=== PATIENT | male | born 1930 | race Caucasian/White ===

== ENCOUNTER 2018-08-23 15:21 | Emergency (ER) | payer MEDICARE, BC ==
--- NOTE | 2018-08-23 17:07 | RAD ---
THREE VIEW LEFT SHOULDER: 08/23/18 CLINICAL HISTORY: Syncopal episode with injury related to fall, pain. 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 There is a high riding left humeral head. No fracture is seen. IMPRESSION: Chronic findings of the left shoulder, without acute fracture evident. POS: C
--- NOTE | 2018-08-23 17:11 | RAD ---
PORTABLE SEMIUPRIGHT FRONTAL CHEST RADIOGRAPH 08/23/18 COMPARISON: None. HISTORY: Syncope, short of breath. FINDINGS: There is a dual lead transvenous pacing device inserted via left subclavian approach. No pneumothorax is seen. There is increased linear interstitial density in the perihilar regions and both lung bases , primarily on the right. In addition, hazy interstitial and alveolar opacities noted in the right sabrina ng base and the right upper lobe region. There also appears to be a degree of volume loss involving t he right hemithorax. IMPRESSION: Nonspecific interstitial and alveolar opacity, primarily within the right lung. Findings suggest infe ctious pneumonitis/aspiration. Asymmetric edema is a less likely possibility. Recommend followup imag ing following treatment to document resolution. POS: RAFAEL
--- NOTE | 2018-08-23 17:17 | CT ---
CT BRAIN WITHOUT CONTRAST: 08/23/18 HISTORY: Injury, syncopal episode with fall, trauma to the head. FINDINGS: There are changes of cortical atrophy and chronic small vessel ischemic disease. The ventricular size is appropriate and the basilar cisterns patent. No evidence of acute infarct, hemorrhage, midline shift, or abnormal extra-axial fluid collections ar e seen. The bony calvarium is intact. The visualized paranasal sinuses and mastoid air cells are well aerated. A prosthesis is seen in the left orbit. IMPRESSION: No CT evidence of acute intracranial process. POS: OFF
--- NOTE | 2018-08-23 17:24 | CT ---
CERVICAL SPINE CT WITHOUT CONTRAST: 08/23/18 COMPARISON: None. HISTORY: Syncope, fall, head injury. TECHNIQUE: Axial CT imaging at 2.5 mm intervals from the skull base through the lung apices without contrast. co keeley and sagittal reformatted imaging obtained. FINDINGS: The C1 ring is intact. The occipital condyles, the dens, and the C1-2 articulation demonstrate no acute findings. Craniocerv ical junction and cervicothoracic junction appear intact. There is minimal anterolisthesis of C7 on T1 measuring approximately 3 mm. There is prominent degenerative change at the atlantoaxial interspace. No prevertebral soft tissue swelling is noted. There is disc space narrowing with degenerative end plate change present at C3-4, C4-5, C5-6, and C6- 7 with associated anterior osteophyte formation. There is no displaced fracture or evidence of dislocation seen. Partially imaged lung apices demonstrate an irregular nodular density in the left lung apex measuring 1.2 cm. There is partially imaged nonspecific coarse air space opacity in the imaged right lung apex . There is a tubular abnormal hypodensity at the level of the thoracic inlet extending to the right of midline within the upper chest which suggests a mass and/or distended esophagus. This abnormality tejinder sures 3.9 cm in greatest dimension and demonstrates a rounded configuration. IMPRESSION: 1. Prominent multilevel degenerative change. No acute fracture or evidence of dislocation. 2. Tubular hypodense structure at the level of the thoracic inlet anteriorly and to the right of midline. Findings suggest distended esophagus containing debris and/or mass density. Recommend CT ex amination of the chest with IV contrast for further assessment. Code T POS: RAFAEL
[2018-08-23 17:34] LABS: #Eosinphils 0.1 thou/uL (0.0-0.7); #Lymphocytes 0.6 thou/uL (1.20-3.40); #Monocytes 0.6 thou/uL (0.11-0.59); #Neutrophils 6.4 thou/uL (1.40-6.50); %Basophils 0.2 % (0.0-1.0); %Eosinophils 1.9 % (0.0-10.0); %Lymphocytes 7.2 % (21.0-51.0); %Monocytes 8.3 % (0.0-10.0); %Neutrophils 82.4 % (42.0-75.0); Hemoglobin 8.9 g/dL (14.0-18.0); Mean Corpuscular HGB CONC 30.8 g/dL (32.0-36.0); Mean Corpuscular Volume 84.3 fL (78.0-98.0); Mean Platelet Volume 7.4 fL (7.4-10.4); Platelet Count 261 thou/uL (130-400); Red Blood Cell (RBC) Count 3.41 mill/uL (4.70-6.10); White Blood Cell (WBC) Count 7.8 thou/uL (4.8-10.8)
[2018-08-23 17:55] LABS: ALT (SGPT) 27 U/L (8-55); AST (SGOT) 25 U/L (5-34); Albumin 3.1 g/dL (3.4-4.8); Alkaline Phosphatase 110 U/L (40-150); Anion Gap 14 mmol/L (10-20); BUN (Urea Nitrogen) 22 mg/dL (8.4-25.7); Bilirubin, Total 0.4 mg/dL (0.2-1.2); CK (CPK) 32 U/L (30-200); Calc. Creatinine Clearance 0 mL/min (70-130); Carbon Dioxide 22 mmol/L (23-31); Chloride 108 mmol/L (98-107); Estimated GFR-MDRD 57; Globulin 2.9 g/dL (2.4-3.5); Glucose 108 mg/dL (83-110); Sodium 139 mmol/L (136-145)
[2018-08-23 18:43] LABS: Bilirubin Negative (Negative); Blood, Urine Negative (Negative); Clarity CLOUDY (Clear); Glucose, Urine (Dipstick) Negative (Negative); Leukocyte Large (Negative); Nitrite Positive (Negative); Protein, Urine (Dipstick) Negative (Neg-Trace); Specific Gravity, Urine 1.019 (1.002-1.036); pH, Urine 5.5 (5.0-9.0)
[2018-08-23 18:46] LABS: Bacteria/HPF 3+ HPF (None Seen); Pathc Cast-AUWi Flag 0.58 (0-2.49); Squamous Epithelial None Seen HPF (0-3)
[2018-08-23 19:04] LABS: Hyaline Casts/LPF 0-3 HYALINE CAST LPF (0-3 Hyaline)
[2018-08-23] MEDS ORDERED: cefTRIAXone\\ROCEPHIN 1 GM VIAL ONE (20:04)
--- NOTE | 2018-08-23 21:30 | CT ---
EXAM: CHEST CT SCAN WITH IV CONTRAST: 08/23/18 HISTORY: 87-year-old male with history of syncope, abnormal findings on chest x-ray. Extensive interstitial, linear, and reticulonodular parenchymal changes throughout both lungs much mo re prominent on the right side with some associated bronchiectasis, certainly evidence for interstiti al chronic lung disease. The possibility of some acute interstitial pneumonitis is certainly a consid eration as well. There are some scattered poorly circumscribed nodules noted bilaterally. One of thes e approximates 0.8 cm and is pleural based in the left lower lobe. There is some enlargement of multi ple mediastinal lymph nodes including the prevascular region, paratracheal region, aortopulmonary win rod region and subcarinal region as well as some fullness of several nodes in the right hilar and inf rahilar region. There is evidence for small hiatal hernia. IMPRESSION: Extensive bilateral interstitial, linear, reticulonodular parenchymal changes much more marked throug hout the right lung with some associated bronchiectasis having the appearance of chronic interstitial lung disease including interstitial pulmonary fibrosis. The possibility of some associated acute int erstitial pneumonitis certainly cannot be excluded from this study. Minimal mediastinal and right hil ar adenopathy. Multiple small scattered poorly defined nodules including a 0.8 cm diameter pleural ba sed nodule in the left lower lobe. Consider followup chest CT scan in three months for further evalua tion. Small hiatal hernia. visualized upper abdomen is unremarkable. POS: RAFAEL
== END 2018-08-23 22:06 | disposition home or self-care (01) ==
LOC: ERS 15:21
DX: M54.2 Cervicalgia (principal); M25.512 Pain in left shoulder; N39.0 Urinary tract infection, site not specified; Z79.899 Other long term (current) drug therapy; Z79.01 Long term (current) use of anticoagulants
CPT/HCPCS: 36415; 70450; 71045; 71260; 72125; 80053; 81003; 81015; 82550; 83880; 84484; 85025; 87077; 87086; 87186; 93005; 96365; J0696

== ENCOUNTER 2018-09-02 12:01 | Inpatient (IN) | payer MEDICARE, BC ==
[2018-09-02 12:54] LABS: #Eosinphils 0.3 thou/uL (0.0-0.7); #Lymphocytes 0.8 thou/uL (1.20-3.40); #Monocytes 0.6 thou/uL (0.11-0.59); #Neutrophils 7.4 thou/uL (1.40-6.50); %Basophils 0.2 % (0.0-1.0); %Eosinophils 2.8 % (0.0-10.0); %Lymphocytes 8.7 % (21.0-51.0); %Monocytes 6.6 % (0.0-10.0); %Neutrophils 81.7 % (42.0-75.0); Mean Corpuscular HGB CONC 30.7 g/dL (32.0-36.0); Mean Corpuscular Hemoglobin 25.5 pg (27.0-31.0); Mean Corpuscular Volume 83.2 fL (78.0-98.0); Mean Platelet Volume 7.4 fL (7.4-10.4); Platelet Count 259 thou/uL (130-400); RBC Distribution Width 14.1 % (11.5-14.5); Red Blood Cell (RBC) Count 3.13 mill/uL (4.70-6.10)
[2018-09-02 13:17] LABS: ALT (SGPT) 35 U/L (8-55); AST (SGOT) 34 U/L (5-34); Alkaline Phosphatase 119 U/L (40-150); Anion Gap 19 mmol/L (10-20); BUN (Urea Nitrogen) 36 mg/dL (8.4-25.7); Bilirubin, Total 0.3 mg/dL (0.2-1.2); CK (CPK) 32 U/L (30-200); Calc. Creatinine Clearance 0 mL/min (70-130); Calcium 8.5 mg/dL (7.8-10.44); Carbon Dioxide 16 mmol/L (23-31); Chloride 105 mmol/L (98-107); Estimated GFR-MDRD 43; Globulin 3.5 g/dL (2.4-3.5); Glucose 128 mg/dL (83-110); Potassium 4.9 mmol/L (3.5-5.1); Protein, Total 6.5 g/dL (5.8-8.1); Sodium 135 mmol/L (136-145)
--- NOTE | 2018-09-02 14:12 | RAD ---
PORTABLE UPRIGHT FRONTAL CHEST RADIOGRAPH: DATE: 09/02/2018. COMPARISON: 08/23/2018. HISTORY: Generalized weakness. FINDINGS: Thee is a dual-lead transvenous pacing device inserted via a left subclavian approach. As seen on pr ior chest radiograph as well as recent chest CT, there is coarse nonspecific increased interstitial a nd alveolar opacity throughout the right hemithorax. There is mild streaky opacity in the left lung apex and left lung base. Heart and mediastinal contours are stable. IMPRESSION: Stable appearance of the chest demonstrating nonspecific interstitial and alveolar opacity throughout the right hemithorax, better assessed on a recent CT examination 10 days prior. POS: RAFAEL
[2018-09-02] MEDS ORDERED: KETAMINE 100 MG/ML (5ML VIAL) ONE (17:52)
[2018-09-02 18:29] LABS: Bilirubin Negative (Negative); Blood, Urine Negative (Negative); Clarity CLEAR (Clear); Glucose, Urine (Dipstick) Negative (Negative); Leukocyte Moderate (Negative); Nitrite Negative (Negative); Protein, Urine (Dipstick) Negative (Neg-Trace); Specific Gravity, Urine 1.026 (1.002-1.036); pH, Urine 5.5 (5.0-9.0)
[2018-09-02 18:31] LABS: Bacteria/HPF None Seen HPF (None Seen); RBC/HPF 0-3 HPF (0-3); Squamous Epithelial 0-3 HPF (0-3)
[2018-09-02] MEDS ORDERED: Cefepime 2 GM in Sodium Chloride 0.9% 100 ML IVPB SCH (18:45)
[2018-09-02 18:47] LABS: Crystals/HPF 2+ URIC ACID HPF (Negative); Hyaline Casts/LPF 0-3 HYALINE CAST LPF (0-3 Hyaline)
[2018-09-02] MEDS ORDERED: Acyclovir 800 mg Tablet PO SCH (22:45)
[2018-09-03] MEDS ORDERED: Acetaminophen 325 MG TAB PO PRN (00:33)
[2018-09-03] MEDS ORDERED: Bisacodyl 10 MG SUPP PR PRN (00:33)
[2018-09-03] MEDS ORDERED: Senokot S 8.6-50 MG TAB PO PRN (00:33)
[2018-09-03] MEDS ORDERED: Bisacodyl 5 MG TAB PO PRN (00:33)
[2018-09-03] MEDS ORDERED: Guaifenesin DM 100-10/5 ML UDCUP PO PRN (00:33)
[2018-09-03] MEDS ORDERED: Zolpidem Tartrate 5 MG TAB PO PRN (00:33)
[2018-09-03] MEDS ORDERED: Calcium Carbonate 500 MG ChewTAB PO PRN (00:33)
[2018-09-03 03:43] LABS: #Basophils 0.1 thou/uL (0.0-0.2); #Eosinphils 0.3 thou/uL (0.0-0.7); #Lymphocytes 0.9 thou/uL (1.20-3.40); #Monocytes 0.8 thou/uL (0.11-0.59); #Neutrophils 5.3 thou/uL (1.40-6.50); %Lymphocytes 12.5 % (21.0-51.0); %Monocytes 10.5 % (0.0-10.0); Hemoglobin 7.8 g/dL (14.0-18.0); Mean Corpuscular HGB CONC 33.6 g/dL (32.0-36.0); Mean Corpuscular Hemoglobin 27.5 pg (27.0-31.0); Mean Corpuscular Volume 81.7 fL (78.0-98.0); Platelet Count 225 thou/uL (130-400); RBC Distribution Width 13.9 % (11.5-14.5); Red Blood Cell (RBC) Count 2.84 mill/uL (4.70-6.10); White Blood Cell (WBC) Count 7.4 thou/uL (4.8-10.8)
[2018-09-03 04:04] LABS: Albumin 2.7 g/dL (3.4-4.8); Anion Gap 11 mmol/L (10-20); BUN (Urea Nitrogen) 33 mg/dL (8.4-25.7); BUN/Creatinine Ratio 24.81; Calc. Creatinine Clearance 0 mL/min (70-130); Calcium 8.3 mg/dL (7.8-10.44); Carbon Dioxide 23 mmol/L (23-31); Chloride 104 mmol/L (98-107); Estimated GFR-MDRD 51; Glucose 110 mg/dL (83-110); Phosphorus 3.4 mg/dL (2.3-4.7); Potassium 5.4 mmol/L (3.5-5.1); Sodium 133 mmol/L (136-145)
[2018-09-03] MEDS ORDERED: Acetaminophen 325 MG TAB ONE (07:14)
--- NOTE | 2018-09-03 09:06 | ULT ---
RENAL ULTRASOUND: DATE: 09/03/2018. COMPARISON: None. HISTORY: Acute kidney injury. TECHNIQUE: Multiplanar, azevedo scale sonographic imaging of the kidneys and urinary bladder obtained. FINDINGS: The right kidney measures 9.3 x 4.2 x 4.6 cm. The left kidney measures 9.4 x 5.5 x 5.0 cm. There is a central cyst within the left kidney measuring up to 3 cm. Urinary bladder appears grossly unremar kable. No hydronephrosis is seen on either side. There is a questionable calcification in the mid p ole of the left kidney which is immediately adjacent to and/or associated with the above-described le ft renal cyst. This calcification measures in the 3 mm range. IMPRESSION: Left renal cyst and adjacent 3 mm calcification. No hydronephrosis. POS: RAFAEL
[2018-09-03] MEDS: Acyclovir 800 mg Tablet PO SCH ×2 (09:10→11:43)
[2018-09-03] MEDS: Aztreonam 1 GM in Sodium Chloride 0.9% 100 ML IVPB SCH (09:10)
[2018-09-03] MEDS: Famotidine/PF 20 mg/2ml Vial SLOW IVP SCH (09:12)
[2018-09-03] MEDS ORDERED: Enoxaparin Sodium 80 MG/0.8 ML SYRINGE ONE (09:14)
[2018-09-03] MEDS ORDERED: Famotidine/PF 20 mg/2ml Vial ONE (09:14)
[2018-09-03] MEDS: Enoxaparin Sodium 40 MG/0.4 ML SYRINGE SC SCH (09:15)
[2018-09-03] MEDS: Famotidine 20 MG TAB PO SCH (09:24)
--- NOTE | 2018-09-03 13:24 | DIS ---
DATE OF ADMISSION: 09/02/2018 DATE OF DISCHARGE: 09/03/2018 DISCHARGE DIAGNOSES: 1. Acute on chronic hypoxic respiratory failure. 2. Community-acquired bacterial pneumonia, likely gram-positive cocci. 3. Shingles. 4. Urinary tract infection with Escherichia coli. 5. Generalized weakness with falls. 6. Chronic anticoagulation with Xarelto. 7. Chronic interstitial lung disease. CONSULTATIONS: None. PERTINENT LABORATORY AND X-RAY FINDINGS: Potassium ranged between 4.9 to 5.4, creatinine ranged between 1.33 to 1.55, estimated GFR ranged between 43 to 51, and phosphorus 3.4. BNP 119. Albumin ranged between 2.7 to 3.0. CBC showed a white blood cell count ranging between 7.4 to 9.0, hemoglobin ranged between 7.8 to 8.0. Urinalysis showed moderate leukocyte esterase with 11 to 20 wbc's per high-power field. Urine culture dated 08/23/2018, showed 75,000 to 100,000 colonies of E coli species, pansensitive. Blood cultures x2 dated 09/02/2018, showed no growth to date. Influenza A and B antigen dated 09/02/2018, negative. Portable chest x-ray dated 09/02/2018, showed interstitial and alveolar opacities of the right hemithorax, similar in appearance to previous chest imaging on 08/23/2018. Renal ultrasound dated 09/03/2018, showed left renal cyst. No hydronephrosis noted. HOSPITAL COURSE: The patient was admitted after initially presenting with generalized weakness and falls. The patient underwent extensive evaluation and placed on IV cefepime and vancomycin after concern for a persistent urinary tract infection. The patient recently evaluated in the emergency room on 08/24/2018, diagnosed with E coli urinary tract infection. The patient was also noted with increased infiltrates of the right hemithorax concerning for persistent infectious process and placed on IV cefepime. The patient was transitioned to IV Azactam during the hospital course. The patient remained on oxygen supplementation at 3 L/minute by nasal cannula, which is the patient's baseline oxygen requirement at home. The patient received general pulmonary supportive management and remained clinically stable. The patient was also noted with right T4 dermatomal shingles and placed on acyclovir 800 mg 5 times daily. Current recommendations are to complete a 7-day course of acyclovir. The patient was also evaluated due to repetitive falls and generalized weakness for inpatient rehabilitation. The patient was deemed appropriate candidate and approved for transfer on 09/03/2018. I have examined the patient at the time of discharge and discussed followup instructions with the patient and his daughter. They both verbalized understanding and agreement and ready for discharge to inpatient rehabilitation on 09/03/2018. DISCHARGE MEDICATIONS: 1. Acyclovir 800 mg p.o. 5 times daily until 09/10/2018. 2. Levaquin 500 mg p.o. daily until 09/08/2018. 3. Losartan 25 mg p.o. daily. 4. Amiodarone 200 mg 1 tab p.o. daily. 5. Donepezil 23 mg half tab p.o. daily. 6. Metoprolol succinate 25 mg p.o. daily. 7. Xarelto 15 mg 1 tab p.o. daily. 8. Ipratropium bromide 21 mcg in one spray in each naris t.i.d. 9. Lumigan drops one drop at bedtime. 10. Iron 325 mg p.o. daily. 11. Protonix 40 mg one tab p.o. daily. 12. Istalol 0.5% ophthalmic drops one drop to the right eye daily. FOLLOWUP: The patient to follow up with [facility] on transfer. The patient may also follow up with his primary java android developer in the [place] area after discharge. CONDITION ON DISCHARGE: Fair. ACTIVITY: Ad maurilio, rolling walker with standby/contact guard assistance. General fall risk precautions. DIET: Regular. CODE STATUS: Full. DISPOSITION: Discharge to [facility] on 09/03/2018. TIME SPENT: Total time preparing and coordinating discharge is 35 minutes. Job ID: [id number]
--- NOTE | 2018-09-04 01:37 | HP ---
CHIEF COMPLAINT: Generalized weakness. HISTORY OF PRESENT ILLNESS: This is an 87-year-old male with past medical history of bladder cancer in 2005, treated with chemotherapy, osteoarthritis, sleep apnea, coronary artery disease status post pacemaker, GERD, presenting with generalized weakness. Per EMS, the patient called for help and the patient was having generalized weakness, especially when the patient was getting out of bed. Upon talking to the patient, the patient states that he has been having burning with urination and he has been going to the bathroom a lot. The patient states that he has to urinate every 2 hours. The patient is also complaining of productive cough and shortness of breath. Per records, when EMS attended to see the patient, the patient's oxygenation was 80% and patient was hypoxic. The patient was given oxygen and improved. REVIEW OF SYSTEMS: Positive for generalized weakness, cough, shortness of breath, otherwise all systems reviewed and are negative. PAST MEDICAL HISTORY: Coronary artery disease status post pacemaker, bladder cancer diagnosed in 2005, treated with chemotherapy, skin cancer, sleep apnea on CPAP at night. FAMILY HISTORY: Reviewed and noncontributory to this visit. PAST SURGICAL HISTORY: The patient has right knee replacement, right shoulder surgery, cholecystectomy, hernia repair, prostatectomy, and history of vasectomy. PSYCHIATRIC HISTORY: No psych history. SOCIAL HISTORY: The patient denies alcohol use. Denies illicit drugs and denies any smoking history. ALLERGIES: THE PATIENT IS ALLERGIC TO ASPIRIN AND PENICILLIN. CURRENT MEDICATIONS: The patient is on, 1. Losartan 25 mg. 2. Amiodarone 200 mg. 3. Donepezil 0.5 tabs oral daily. 4. Metoprolol succinate 25 mg. 5. Xarelto 15 mg. 6. Ipratropium. 7. Lumigan. 8. Iron. 9. Pantoprazole. 10. Bactrim. 11. Istalol. PHYSICAL EXAMINATION: VITAL SIGNS: Blood pressure is 121/51, pulse of 95, respiratory rate of 12, oxygen saturation of 94 on 3 L. GENERAL: The patient is lying in bed, does not appear to be in any acute distress. HEENT: Normocephalic and atraumatic. 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 For the right eye, pupils are reactive to light. Mucous membranes are moist. NECK: Trachea is midline. Full range of motion. No JVD. No tenderness. RESPIRATORY: Clear to auscultation bilaterally. No wheezing, no rales, no rhonchi appreciated. CARDIAC: Positive S1 and S2. Regular rate and rhythm. No murmurs, no gallops, no rubs appreciated. ABDOMEN: Soft, nontender, and nondistended. Positive bowel sounds in all quadrants. EXTREMITIES: The patient has 5/5 upper extremity strength and good pulses bilaterally. Lower extremity, 5/5 lower extremity strength and good pulses bilaterally. No edema noted. NEUROLOGIC: Cranial nerves 2 through 12 grossly intact. No neurologic deficits noted. SKIN: Warm and dry. The patient does have shingles on the right arm and back. The patient has shingles to the right side scattered among the T4 dermatome. PSYCH: Normal affect. DIAGNOSTIC DATA: EKG; a 12-lead EKG shows paced rhythm, rate of 77. Chest x-ray shows dual lead transvenous pacing device inserted via left subclavian approach. LABORATORY DATA: WBC is 9.0, hemoglobin is 8.0, hematocrit is 26.0, platelet count is 259. Sodium is 135, potassium is 4.9, chloride is 105, carbon dioxide is 16, BUN is 36, creatinine is 1.55, glucose is 128, BNP is 119.3. Urinalysis shows moderate leukocyte esterases. ASSESSMENT AND PLAN: This is an 87-year-old male being admitted for, 1. Urinary tract infection. At this point, we will start the patient on antibiotics. We will continue the patient on antibiotics. We will follow up morning labs. We will give the patient p.r.n. medication for pain and fever. We will follow up on cultures. 2. Acute kidney injury likely due to dehydration. At this point, we will order renal function panel. We will follow up on the panel. We will continue the patient on gentle hydration. We will monitor the patient closely. 3. Normocytic anemia, likely due to anemia of chronic inflammation. At this point, we will monitor the patient conservatively. We will continue current treatment. 4. Shortness of breath. The patient wears home O2. We will continue the patient on oxygenation. 5. Herpes zoster at the T4 dermatome and also at the right arm. We will continue the patient on acyclovir. 6. Deep venous thrombosis and gastrointestinal prophylaxis. Job ID: [id number]
[2018-09-05 09:40] VITALS: TEMP 98.4
[2018-09-05] MEDS: Acyclovir 800 mg Tablet PO SCH ×4 (11:42→15:09)
[2018-09-05] MEDS: Aztreonam 1 GM in Sodium Chloride 0.9% 100 ML IVPB SCH ×3 (11:43→11:57)
[2018-09-05] MEDS: Enoxaparin Sodium 40 MG/0.4 ML SYRINGE SC SCH ×2 (11:44→11:47)
[2018-09-05] MEDS: Famotidine 20 MG TAB PO SCH ×2 (11:44→11:47)
[2018-09-05] MEDS: Famotidine/PF 20 mg/2ml Vial SLOW IVP SCH ×2 (11:45→11:48)
[2018-09-05] MEDS ORDERED: Enoxaparin Sodium 40 MG/0.4 ML SYRINGE ONE (11:47)
[2018-09-05] MEDS ORDERED: Famotidine 20 MG TAB ONE (11:47)
[2018-09-05 16:08] VITALS: BP 97/46
--- NOTE | 2018-09-09 13:44 | EKG ---
Test Reason : WEAKNESS Blood Pressure : / mmHG Vent. Rate : 077 BPM Atrial Rate : 077 BPM P-R Int : 234 ms QRS Dur : 146 ms QT Int : 436 ms P-R-T Axes : 052 -35 114 degrees QTc Int : 493 ms Electronic ventricular pacemaker , malfunction Non-specific intra-ventricular conduction delay Confirmed by LAUREN GIBBS MD ([id number]), publishing editor NORBERTO REYES ([id number] on 09/09/2018 1:44:17 PM Referred By: Confirmed By:LAUREN GIBBS MD
== END 2018-09-03 12:55 | DRG 689 ==
LOC: ERS 12:01 → ERHOLD 17:33
PROVIDERS: ADMIT Family Medicine; ATTEND Family Medicine
DX: N39.0 Urinary tract infection, site not specified (principal); J96.21 Acute and chronic respiratory failure with hypoxia; J18.9 Pneumonia, unspecified organism; N17.9 Acute kidney failure, unspecified; B02.9 Zoster without complications; B96.20 Unspecified Escherichia coli [E. coli] as the cause of diseases classified elsewhere; J98.4 Other disorders of lung; G47.30 Sleep apnea, unspecified; I25.10 Atherosclerotic heart disease of native coronary artery without angina pectoris; K21.9 Gastro-esophageal reflux disease without esophagitis; R29.6 Repeated falls; E86.0 Dehydration; Z85.51 Personal history of malignant neoplasm of bladder
CPT/HCPCS: 36415; 71045; 76770; 80053; 80069; 81003; 81015; 82550; 83880; 84484; 85025; 87040; 87086; 87804; 93005; 94760; 96365; 96367; J0692; J1650; J1956; J3370; J3490; J7050; S0028

== ENCOUNTER 2018-09-04 18:50 | Inpatient (IN) | payer MEDICARE, BC ==
[~2018-09-04 18:50] MED LIST: ISOVUE-370 76%-LOCM 1 ML ONE
[2018-09-04 19:52] LABS: #Lymphocytes 0.3 thou/uL (1.20-3.40); #Monocytes 0.2 thou/uL (0.11-0.59); #Neutrophils 7.1 thou/uL (1.40-6.50); %Eosinophils 0.1 % (0.0-10.0); %Lymphocytes 3.5 % (21.0-51.0); %Monocytes 2.7 % (0.0-10.0); %Neutrophils 93.7 % (42.0-75.0); Hemoglobin 7.2 g/dL (14.0-18.0); Mean Corpuscular HGB CONC 31.9 g/dL (32.0-36.0); Mean Corpuscular Hemoglobin 25.6 pg (27.0-31.0); Mean Corpuscular Volume 80.3 fL (78.0-98.0); Mean Platelet Volume 7.2 fL (7.4-10.4); Platelet Count 279 thou/uL (130-400); Red Blood Cell (RBC) Count 2.82 mill/uL (4.70-6.10); White Blood Cell (WBC) Count 7.6 thou/uL (4.8-10.8)
--- NOTE | 2018-09-04 20:10 | RAD ---
CHEST ONE VIEW: HISTORY: Chest pain. COMPARISON: 09/04/2018 FINDINGS: The cardiac silhouette is magnified by projection and partially obscured by widespread air space dise ase, similar in appearance to the prior study. A component of atelectasis of the right lung is stabl e. Pulmonary vasculature remains engorged. A dual-lead left subclavian cardiac electronic device is in place. No evidence of pneumothorax. IMPRESSION: Dense, multifocal infiltrate and other findings are stable, compared to earlier examination on the sa me date. No new abnormalities are evident. POS: BST
[2018-09-04 20:15] LABS: ALT (SGPT) 45 U/L (8-55); AST (SGOT) 54 U/L (5-34); Albumin 2.8 g/dL (3.4-4.8); Alkaline Phosphatase 140 U/L (40-150); Anion Gap 17 mmol/L (10-20); BUN (Urea Nitrogen) 40 mg/dL (8.4-25.7); Bilirubin, Total 0.3 mg/dL (0.2-1.2); Calc. Creatinine Clearance 0 mL/min (70-130); Calcium 8.4 mg/dL (7.8-10.44); Carbon Dioxide 19 mmol/L (23-31); Chloride 100 mmol/L (98-107); Estimated GFR-MDRD 36; Globulin 3.6 g/dL (2.4-3.5); Glucose 186 mg/dL (83-110); Potassium 5.5 mmol/L (3.5-5.1); Protein, Total 6.4 g/dL (5.8-8.1); Sodium 130 mmol/L (136-145)
[2018-09-04 21:12] LABS: Actual Bicarbonate (HCO3a) 19.2 mEq/L (22-28); Analyzer IN Cardio ER; Base Excess (BEa) -2.9 mEq/L (-2.0 to +3.0); Calcium, Ionized 1.12 mmol/L (1.12-1.30); Carboxyhemoglobin (COHb) 0.1 gm% (0.0-3.0); Hemoglobin (Hb) 7.4 g/dL (14.0-18.0); O2 Tension (PaO2) 134.1 mmHg (> 60.0); Potassium - ABG Lab 5.42 mmol/L (3.70-5.30); pH, Arterial 7.53 (7.35-7.45)
[2018-09-04 21:13] LABS: CO2 Tension 23.4 mmHg (35.0-45.0); Puncture Site RRA
--- NOTE | 2018-09-04 22:20 | CT ---
CTA THORAX WITH CONTRAST: DATE: 09/04/2018 TIME: 9:54 p.m. (Computed Tomographic Angiography, chest(noncoronary) with contrast material, and image post processi ng) (PE protocol) HISTORY: An 87-year-old male with dyspnea, bronchitis, and chest pain. COMPARISON: Standard chest CT with contrast from 08/23/2018. TECHNIQUE: IV injection of iodinated contrast: Isovue-370 60 mL. Scan acquisition timing attempted to coincide with iodinated contrast bolus reaching maximal density in pulmonary arteries. 3D MIP reconstructions. FINDINGS: The previously demonstrated predominantly right-sided, moderately severe infiltrates in the right upp er lobe, right middle lobe, and right lower lobe, in patchy distribution, have worsened. In addition to the mosaic pattern of infiltrates demonstrated previously (which have now become more extensive), there are now some small regions of consolidation, especially in the perihilar right upper lobe. Furthermore, there are extensive new such mosaic pattern infiltrates and small consolidations in the contralateral left lung now, in both left upper lobe (including lingula) and left lower lobe (both choudhury perior and basilar segments). There is a new small right pleural effusion. No pleural effusion on t he left side. Previously, there was a small sliding hiatal hernia. Now, there is distention of the entire thoracic esophagus by moderately high density fluid. The high density suggests the possibility of blood (hem optysis). Alternatively, this could represent high density ingested material. Tortuosity and mild t o moderate atherosclerosis of the thoracic aorta without dissection or aneurysm. There is mild narro wing of the left mainstem bronchus by the dilated esophagus. No pneumothorax. Again noted is the pu lmonary nodule in the left lower lobe, abutting the posterolateral pleural surface. Current measurem ent is approximately 10 mm. There is no pulmonary thromboembolism in the pulmonic trunk, left and ri ght main pulmonary arteries, or their first order branches. More distally, it is difficult to evalua te the branches of the pulmonary arteries due to breathing motion artifact. IMPRESSION: 1. Interval worsening of now severe bilateral heterogeneously distributed infiltrates, consistent wi th acute bilateral infectious pneumonia vs a nonspecific noninfectious acute pneumonitis. 2. New small right pleural effusion. 3. New finding of distention of the thoracic esophagus by high density fluid material, possibly hemo ptysis. 4. No central pulmonary thromboembolism identified. jn[] POS: [facility]
[2018-09-05] MEDS ORDERED: Furosemide 40 MG/4 ML VIAL ONE (01:42)
[2018-09-05] MEDS ORDERED: Furosemide 40 MG/4 ML VIAL SLOW IVP SCH (01:45)
[2018-09-05] MEDS ORDERED: Ipratropium Bromide 2.5 ml Neb NEB PRN (07:06)
[2018-09-05] MEDS ORDERED: Guaifenesin DM 100-10/5 ML UDCUP PO PRN (07:06)
[2018-09-05] MEDS ORDERED: Acetaminophen 325 MG TAB PO PRN (07:07)
[2018-09-05] MEDS ORDERED: Senokot S 8.6-50 MG TAB PO PRN (07:07)
[2018-09-05] MEDS ORDERED: Zolpidem Tartrate 5 MG TAB PO PRN (07:07)
[2018-09-05] MEDS ORDERED: Bisacodyl 5 MG TAB PO PRN (07:07)
[2018-09-05] MEDS ORDERED: Calcium Carbonate 500 MG ChewTAB PO PRN (07:07)
[2018-09-05] MEDS ORDERED: Acyclovir 800 mg Tablet PO SCH (08:00)
[2018-09-05] MEDS ORDERED: Prevnar 13-Val Conj/PF 0.5 ML SYRINGE IM ONE (09:00)
[2018-09-05] MEDS ORDERED: Non-Formulary Item 1 EACH (Donepezil Hcl [Aricept] 23 MG) PO SCH (09:00)
[2018-09-05] MEDS ORDERED: Famotidine 20 MG TAB PO SCH (09:00)
[2018-09-05] MEDS ORDERED: Rivaroxaban 15 MG TAB PO SCH (09:00)
[2018-09-05] MEDS ORDERED: Amiodarone 200 MG TAB PO SCH (09:00)
[2018-09-05] MEDS ORDERED: Losartan 25 MG TAB PO SCH (09:00)
[2018-09-05] MEDS ORDERED: Non-Formulary Item 1 EACH (Ferrous Sulfate [Iron] 325 MG) PO SCH (09:00)
--- NOTE | 2018-09-05 15:11 | PDOC.PN ---
- Subjective Encounter Start Date: 09/05/18 Encounter Start Time: 10:45 Subjective: sob+, no chest pain or trouble swallowing -: has cough, no blood in sputum - Objective Resuscitation Status - Order Detail: 09/05/18 07:07 Resuscitation Status Routine Resuscitation Status: FULL: Full Resuscitation MAR Reviewed: Yes Vital Signs & Weight: Vital Signs (12 hours) Pulse Resp BP Pulse Ox 09/05/18 04:30 74 20 113/53 L 95 Weight Weight 175 lb 14.4 oz Result Diagrams: 09/04/18 19:37 09/04/18 19:37 Phys Exam - Physical Examination HEENT: sclera anicteric dry mucosa, left eye blindness Neck: no JVD, supple Respiratory: no wheezing rhonchi++, coarse rales+ on right hemithorax Cardiovascular: RRR, no significant murmur Gastrointestinal: soft, no distention, positive bowel sounds Musculoskeletal: no edema, pulses present Neurological: non-focal, moves all 4 limbs Psychiatric: normal affect, A&O x 3 Dx/Plan (1) Acute respiratory failure with hypoxia Code(s): J96.01 - ACUTE RESPIRATORY FAILURE WITH HYPOXIA Status: Acute (2) PNA (pneumonia) Code(s): J18.9 - PNEUMONIA, UNSPECIFIED ORGANISM Status: Acute Qualifiers: Pneumonia type: due to unspecified organism Laterality: bilateral (3) Interstitial lung disease Code(s): J84.9 - INTERSTITIAL PULMONARY DISEASE, UNSPECIFIED Status: Suspected (4) CRYSTAL (acute kidney injury) Code(s): N17.9 - ACUTE KIDNEY FAILURE, UNSPECIFIED Status: Acute (5) Herpes zoster Code(s): B02.9 - ZOSTER WITHOUT COMPLICATIONS Status: Acute (6) Afib Code(s): I48.91 - UNSPECIFIED ATRIAL FIBRILLATION Status: Chronic Qualifiers: Atrial fibrillation type: paroxysmal Qualified Code(s): I48.0 - Paroxysmal atrial fibrillation (7) Metabolic acidosis Code(s): E87.2 - ACIDOSIS Status: Acute (8) Moderate protein malnutrition Code(s): E44.0 - MODERATE PROTEIN-CALORIE MALNUTRITION Status: Chronic (9) Anemia Code(s): D64.9 - ANEMIA, UNSPECIFIED Status: Acute Qualifiers: Anemia type: unspecified type Qualified Code(s): D64.9 - Anemia, unspecified - Plan d/w and -: will be on empiric levaquin, cefepime and vanc renal based dosing -: nebs, steroids, continue to hold xarelto -: possible egd in am, speech eval -: switch to valacyclovir bid, amiodarone daily, toprol. * . discussed code status with daughter and patient, he is full code, will discuss further in am. Daughter aware of possible worsoning lung changes on right side and might end up on vent if he further decompensates. Is off xarelto from yesterday. Hb is low at 7g, will not start xarelto until he stabilizes. Review of Systems - Medications/Allergies Allergies/Adverse Reactions: Allergies Allergy/AdvReac Type Severity Reaction Status Date / Time aspirin Allergy Verified 09/05/18 03:02 Penicillins Allergy Verified 09/05/18 03:02 Medications: Current Medications Acetaminophen (Tylenol) 650 mg PO Q4H PRN PRN Reason: Headache/Fever/Mild Pain (1-3) Albuterol/Ipratropium (Duoneb) 3 ml NEB [id number] ONEAL Bisacodyl (Dulcolax) 10 mg PO DAILYPRN PRN PRN Reason: Constipation Calcium Carbonate (Tums) 1,000 mg PO Q4H PRN PRN Reason: Heartburn or Indigestion Ferrous Sulfate (Feosol) 325 mg PO DAILY ONEAL Guaifenesin/Dextromethorphan (Robitussin Dm) 15 ml PO Q4H PRN PRN Reason: Cough Sodium Chloride (Normal Saline 0.9%) 1,000 mls @ 75 mls/hr IV .[id number] ONEAL Cefepime HCl 1 gm/ Sodium (Chloride) 100 mls @ 200 mls/hr IVPB Q24H ONEAL Vancomycin HCl 1 gm/ Device 200 mls @ 200 mls/hr IVPB Q24H ONEAL Ipratropium Mchenry (Atrovent) 2.5 ml NEB TID PRN PRN Reason: SOB &/or Wheezing Latanoprost (Xalatan 0.005% Ophth Soln) 1 drop EA EYE HS ONEAL Levofloxacin (Levaquin) 500 mg PO DAILY ONEAL Stop: 09/08/18 09:01 Methylprednisolone Sodium Succinate (Solu-Medrol) 60 mg IVP Q6HR ONEAL Metoprolol Succinate (Toprol Xl) 25 mg PO DAILY ONEAL Pantoprazole Sodium (Protonix) 40 mg PO HS ONEAL [Aricept] 23 Mg 0 each PO DAILY ONEAL Senna/Docusate Sodium (Senokot S) 2 tab PO BID PRN PRN Reason: Constipation Sodium Chloride (Flush - Normal Saline) 10 ml IVF Q12HR PRN PRN Reason: Saline Flush Sodium Chloride (Flush - Normal Saline) 10 ml IVF PRN PRN PRN Reason: Saline Flush Valacyclovir HCl (Valtrex) 1 gm PO BID ONEAL Zolpidem Tartrate (Ambien) 5 mg PO HSPRN PRN PRN Reason: Insomnia
[2018-09-05] MEDS ORDERED: Vancomycin HCl 1 GM in Premix Bag 1 BAG IVPB SCH ×2 (15:15→21:00)
[2018-09-05] MEDS: Ferrous Sulfate 325 MG TAB PO SCH (15:49)
[2018-09-05] MEDS: methylPREDNISolone Sod Succ/PF 125 MG/2 ML VIAL IVP SCH (16:58)
[2018-09-05] MEDS: Cefepime 1 GM in Sodium Chloride 0.9% 100 ML IVPB SCH (16:58)
[2018-09-05] MEDS: Sodium Chloride 0.9% 1,000 ML IV SCH (16:59)
[2018-09-05] MEDS ORDERED: valACYclovir HCl 1 GM TAB PO SCH (21:00)
[2018-09-05] MEDS ORDERED: Cefepime 1 GM in Sodium Chloride 0.9% 100 ML IVPB SCH (21:00)
[2018-09-05] MEDS ORDERED: Non-Formulary Item 1 EACH (Bimatoprost [Lumigan] 1 DROP) OP SCH (21:00)
[2018-09-05] MEDS: Latanoprost 0.005% Ophth Soln 2.5 ml Bottle EA EYE SCH (21:04)
--- NOTE | 2018-09-05 22:39 | CON ---
DATE OF CONSULTATION: 09/05/2018 This is a 45 minutes critical care time. CONSULTING PHYSICIAN: Dr. Gibson. REASON FOR CONSULTATION: Bilateral pneumonia. HISTORY OF PRESENT ILLNESS: The patient is an 87-year-old male, who has visited the ER for the 3rd time in a week with progressive shortness of breath. He is a very poor historian. My understanding is he was recently here and was sent over to rehab, but was sent back because of hypoxemia. The patient states he has trouble swallowing, but that has been the case for at least seven years. He has had no fever, chills, but has had a cough. He has required 100% non-rebreather oxygen since coming into the emergency room. Attempts to wean have been unsuccessful. On August 23, the patient was in the ER and had a CT of his chest performed showing bilateral mild interstitial changes, which were worse on the right. Today, he had a CT performed showing diffuse interstitial changes bilaterally. PAST MEDICAL HISTORY: 1. 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 He is very vague about this. It does not sound like it needed to be dilated in the past. 2. Coronary artery disease. 3. Pacemaker placement. 4. Bladder cancer, treated with chemotherapy. 5. Skin cancer. 6. Sleep apnea requiring CPAP. PAST SURGICAL HISTORY: 1. Right knee replacement. 2. Pacemaker placement. 3. Radical prostatectomy. 4. Vasectomy. 5. Cholecystectomy. 6. Right shoulder surgery. FAMILY MEDICAL HISTORY: Unremarkable for pulmonary fibrosis. SOCIAL HISTORY: He quit smoking in 1964. Does not consume alcohol. Does not use illicit drugs. He lives at home with his daughter. ALLERGIES: ASPIRIN AND PENICILLIN. MEDICATIONS: Prior to admission, 1. Losartan. 2. Amiodarone. 3. Donepezil. 4. Metoprolol. 5. Xarelto. 6. Ipratropium. 7. Lumigan. 8. Iron. 9. Pantoprazole. 10. Bactrim. 11. Istalol. REVIEW OF SYSTEMS: Negative for fever, chills. He has had some nausea, occasional vomiting. No hematemesis, melena, or hematochezia. No hematuria or dysuria. PHYSICAL EXAMINATION: VITAL SIGNS: Temperature is 98.6, pulse 74, respirations 20, O2 saturation is 98% on a 100% non-rebreather, blood pressure 113/53. GENERAL: This patient is an 87-year-old male, who does appear to be his stated age. He does not appear to have cachexia or chronic weight loss. HEENT: He has an enucleated left eye. Right eye pupils reactive. Oropharynx clear. NECK: No adenopathy or JVD. LUNGS: He has coarse crackles bilaterally. CARDIOVASCULAR: S1 and S2. Regular. ABDOMEN: Soft, nontender. EXTREMITIES: No clubbing, cyanosis, or edema. LABORATORY DATA: Sodium 130, potassium 5.5, chloride 100, CO2 of 19, BUN 40, creatinine 1.7, glucose 186, AST 54, ALT 45, albumin 2.8. BNP 105. pH 7.53, pCO2 of 23, PO2 134. White blood cell count 7.6, hematocrit 22.7, and platelet count 279. CT of his chest demonstrates diffuse interstitial changes bilaterally, right worse than the left. I do not see any honeycombing. He has fluid in the esophagus at least 2/[address] up. I do not see any discrete mass. The radiologist thought that the Hounsfield units look consistent with blood. Micro shows no growth today. ASSESSMENT: 1. Bilateral pneumonitis. Differential in this case would be atypical pneumonia, chemical pneumonitis from aspiration, vasculitis, or amiodarone lung. 2. Possible distal esophageal impaction versus stenosis. 3. Acute hypoxic respiratory failure. 4. Anemia. 5. Acute renal insufficiency. 6. Mild hyperkalemia. RECOMMENDATIONS: 1. I would place him in the CCU, given his oxygen requirement. 2. Check vasculitis panel. 3. Followup labs. 4. Followup daily x-ray. 5. Empiric antibiotics, empiric steroids in case this is amiodarone toxicity, he will need a higher dose than what is currently been ordered. 6. GI consultation to make sure he does not have a distal esophageal obstruction. 7. High risk for decompensation and needing endotracheal intubation, therefore he needs to be in CCU. Job ID: [id number]
[2018-09-05] MEDS ORDERED: valACYclovir 500 MG TAB PO SCH (23:45)
[2018-09-06] MEDS: methylPREDNISolone Sod Succ/PF 125 MG/2 ML VIAL IVP SCH ×5 (00:37→22:41)
[2018-09-06 01:15] LABS: Vancomycin, Random 2.1 ug/mL (See Comment)
[2018-09-06] MEDS: Vancomycin HCl 1 GM in Premix Bag 1 BAG IVPB SCH ×2 (02:18→15:13)
[2018-09-06 03:55] LABS: #Lymphocytes 0.3 thou/uL (1.20-3.40); #Monocytes 0.7 thou/uL (0.11-0.59); #Neutrophils 14.1 thou/uL (1.40-6.50); %Basophils 0.2 % (0.0-1.0); %Eosinophils 0.1 % (0.0-10.0); %Lymphocytes 1.9 % (21.0-51.0); %Monocytes 4.9 % (0.0-10.0); %Neutrophils 92.9 % (42.0-75.0); Mean Corpuscular HGB CONC 31.4 g/dL (32.0-36.0); Mean Corpuscular Hemoglobin 25.3 pg (27.0-31.0); Mean Corpuscular Volume 80.6 fL (78.0-98.0); Mean Platelet Volume 7.5 fL (7.4-10.4); Platelet Count 308 thou/uL (130-400); RBC Distribution Width 14.2 % (11.5-14.5); Red Blood Cell (RBC) Count 2.75 mill/uL (4.70-6.10); White Blood Cell (WBC) Count 15.1 thou/uL (4.8-10.8)
[2018-09-06 04:13] LABS: Anion Gap 16 mmol/L (10-20); BUN (Urea Nitrogen) 52 mg/dL (8.4-25.7); Calc. Creatinine Clearance 33 mL/min (70-130); Calcium 8.5 mg/dL (7.8-10.44); Carbon Dioxide 20 mmol/L (23-31); Chloride 104 mmol/L (98-107); Estimated GFR-MDRD 37; Glucose 175 mg/dL (83-110); Potassium 4.9 mmol/L (3.5-5.1); Sodium 135 mmol/L (136-145)
[2018-09-06] MEDS: Sodium Chloride 0.9% 1,000 ML IV SCH ×3 (04:23→20:48)
--- NOTE | 2018-09-06 08:13 | PRG ---
DATE OF SERVICE: 09/06/2018 SUBJECTIVE: He is awake on BiPAP. Does not appear to be in any overt distress. OBJECTIVE: VITAL SIGNS: His temperature is 98.7, pulse 86, blood pressure 117/55, and O2 saturation generally running in the high 80s to low 90s on 60% oxygen through BiPAP. Intake for 24 hours 1188 and output 375. HEENT: Unremarkable. NECK: No JVD. LUNGS: Coarse crackles bilaterally. CARDIAC: S1 and S2. Regular. ABDOMEN: Soft. EXTREMITIES: No edema. LABORATORY DATA: White blood cell count 15.1, hemoglobin 7, hematocrit 22.2, and platelet count 208. Sodium 135, potassium 4.9, chloride 104, CO2 of 20, BUN 52, creatinine 1.7, and glucose 175. ASSESSMENT: 1. Interstitial lung disease - possibility of atypical pneumonia versus chemical aspiration versus vasculitis versus amiodarone lung. 2. Distal esophageal impaction versus stenosis. 3. Acute hypoxic respiratory failure, requiring mechanical ventilation. PLAN: 1. We are awaiting the echo report to further delineate his cardiac status. 2. Amiodarone is being held. 3. Continue steroids and antibiotics. 4. Await vasculitis panel. 5. I suspect he will be in the ICU for quite some time. Job ID: [id number]
[2018-09-06] MEDS: Ferrous Sulfate 325 MG TAB PO SCH (08:42)
--- NOTE | 2018-09-06 09:16 | CON ---
DATE OF CONSULTATION: REASON FOR CONSULTATION: Abnormal CT scan of the chest revealing a dense material in the esophagus with some fluid, possibly blood versus some foreign body. HISTORY OF PRESENT ILLNESS: Mr. Gabriel Higginbotham is an 87-year-old male who was recently hospitalized and discharged 1 day ago. The patient has history of recent diagnosis of herpes zoster involving the T4 and has been on some antiviral therapy. The patient came to the ER, because of vague chest pain and also dyspnea. The patient had a CAT scan of the chest, which revealed bilateral extensive interstitial infiltrate. The CT scan done a few days ago reveals right-sided infiltrate. Now, he has mild infiltrate and also a small right pleural effusion. On reviewing the CT scan, he was found to have a fluid-filled dilated esophagus and there is a possibility of a foreign body impaction causing his problem. However, the patient has dysphagia. He was given some pills while in the ER and he was to drink the pills and the fluid without any difficulty. The patient has no prior history of dysphagia, although he has history of hiatal hernia. The patient denies any chest pain, any painful swallowing. The patient had been empirically started on broad-spectrum antibiotic therapy by Dr. Erica Gibson and a pulmonary consult is pending. Apparently they have spoken to Dr. Francois to see the patient. When I saw the patient in the ICU, he was on BiPAP with dyspnea. Most of the history was obtained by going over the history and physical done by Dr. Lester Rueda and also by Dr. Erica Gibson. ALLERGIES: 1. ASPIRIN. 2. PENICILLIN. MEDICAL ILLNESSES: 1. History of bladder cancer treated with chemotherapy in 2005. 2. Osteoarthritis. 3. Sleep apnea. 4. Coronary artery disease, status post pacemaker implant. 5. Hiatal hernia, chronic acid reflux. 6. Recent herpes zoster. 7. Skin cancer removed in the past. PAST SURGICAL HISTORY: 1. Pacemaker placement. 2. Skin cancer removal. 3. He has had a right knee placement, right shoulder surgery. 4. Cholecystectomy. 5. Hernia repair. 6. Prostatectomy. 7. History of vasectomy. MEDICATION LIST: Reviewed. SOCIAL HISTORY: The patient does not smoke or drink alcohol. MEDICATIONS: 1. Losartan. 2. Amiodarone. 3. Donepezil. 4. Metoprolol. 5. Xarelto. 6. Ipratropium. 7. Lumigan. 8. Iron. 9. Pantoprazole. 10. Bactrim. REVIEW OF SYSTEMS: System review is difficult to obtain as he is dyspneic and he is having a BiPAP. PHYSICAL EXAMINATION: VITAL SIGNS: He is dyspneic. GENERAL: He is awake and does communicate, but with his BiPAP, he finds it difficult to actually communicate very well. His pulse is 76, blood pressure 113/53. HEENT: Conjunctivae clear. NECK: Supple. CARDIOVASCULAR: First and second sounds are heard. LUNGS: Clear to auscultation with occasional rales. ABDOMEN: Soft. Abdomen is nondistended. Abdomen is nontender. No organomegaly or masses. Bowel sounds normal. LABORATORY DATA: CBC: WBC is 7600, hemoglobin 7.2, hematocrit 22.7, platelet count 229,000. BUN is 40, creatinine 1.79. Lytes normal. Potassium 5.5, glucose 186. A chest CAT scan showed bilateral extensive interstitial infiltrate and also right pleural effusion. CLINICAL IMPRESSION: 1. Mild pneumonia, interstitial infiltrates and respiratory failure on bilevel positive airway pressure. 2. Acute kidney injury versus prerenal azotemia. 3. Anemia. 4. Past history of prostatectomy. 5. Bladder cancer, had chemotherapy in 2007. 6. Skin cancer, removed. 7. Sleep apnea, status post on CPAP. 8. Status post pacemaker implant. RECOMMENDATION: I will hold off for any invasive procedure for the time being as he is dyspneic and on BiPAP. I am really not even sure that he has a foreign body impaction as he is found able to swallow the liquids and to take pills without any problem. I will for the time being until his respiratory status is stable. We will also hold on the Xarelto for the time being pending the EGD. Job ID: [id number]
[2018-09-06] MEDS: valACYclovir 500 MG TAB PO SCH ×3 (10:09→23:34)
--- NOTE | 2018-09-06 12:30 | PDOC.PN ---
- Subjective Encounter Start Date: 09/06/18 Encounter Start Time: 11:45 Subjective: awake, on bipap -: is drinking ensure cans and liq diet - Objective Resuscitation Status - Order Detail: 09/05/18 07:07 Resuscitation Status Routine Resuscitation Status: FULL: Full Resuscitation MAR Reviewed: Yes Vital Signs & Weight: Vital Signs (12 hours) Temp Pulse Resp Pulse Ox 09/06/18 12:00 97.9 F 09/06/18 11:12 87 09/06/18 11:10 92 33 H 92 L 09/06/18 08:00 90 L 09/06/18 07:48 86 09/06/18 07:47 86 29 H 87 L 09/06/18 07:00 97.9 F 09/06/18 03:00 98.7 F 09/06/18 02:13 89 09/06/18 02:12 85 24 H 92 L Weight Weight 179 lb 0.246 oz Most Recent Monitor Data Heart Rate from ECG 99 NIBP 98/51 NIBP BP-Mean 66 Respiration from ECG 30 SpO2 95 I&O: 09/05/18 09/06/18 09/07/18 06:59 06:59 06:59 Intake Total 1188 250 Output Total 375 50 Balance 813 200 Result Diagrams: 09/06/18 03:34 09/06/18 03:34 Phys Exam - Physical Examination HEENT: PERRLA, moist MMs Neck: no JVD, supple Respiratory: no wheezing rhonchi++ Cardiovascular: RRR, no significant murmur Gastrointestinal: soft, non-tender, positive bowel sounds Musculoskeletal: no edema, pulses present Neurological: non-focal, moves all 4 limbs Dx/Plan (1) Acute respiratory failure with hypoxia Code(s): J96.01 - ACUTE RESPIRATORY FAILURE WITH HYPOXIA Status: Acute Comment: on bipap (2) PNA (pneumonia) Code(s): J18.9 - PNEUMONIA, UNSPECIFIED ORGANISM Status: Acute Qualifiers: Pneumonia type: due to unspecified organism Laterality: bilateral (3) Interstitial lung disease Code(s): J84.9 - INTERSTITIAL PULMONARY DISEASE, UNSPECIFIED Status: Suspected (4) CRYSTAL (acute kidney injury) Code(s): N17.9 - ACUTE KIDNEY FAILURE, UNSPECIFIED Status: Acute (5) Herpes zoster Code(s): B02.9 - ZOSTER WITHOUT COMPLICATIONS Status: Acute Comment: thoracic dermatome (6) Afib Code(s): I48.91 - UNSPECIFIED ATRIAL FIBRILLATION Status: Chronic Qualifiers: Atrial fibrillation type: paroxysmal Qualified Code(s): I48.0 - Paroxysmal atrial fibrillation (7) Metabolic acidosis Code(s): E87.2 - ACIDOSIS Status: Acute (8) Moderate protein malnutrition Code(s): E44.0 - MODERATE PROTEIN-CALORIE MALNUTRITION Status: Chronic (9) Anemia Code(s): D64.9 - ANEMIA, UNSPECIFIED Status: Acute Qualifiers: Anemia type: unspecified type Qualified Code(s): D64.9 - Anemia, unspecified - Plan is on cefepime, vanc and levaq -: high dose steroids, off amiodarone -: egd when resp lai is stable -: renal function slowly trending down -: gentle iv hydration, echo pending, prognosis guarded * . Review of Systems - Medications/Allergies Allergies/Adverse Reactions: Allergies Allergy/AdvReac Type Severity Reaction Status Date / Time aspirin Allergy Verified 09/05/18 03:02 Penicillins Allergy Verified 09/05/18 03:02 Medications: Current Medications Acetaminophen (Tylenol) 650 mg PO Q4H PRN PRN Reason: Headache/Fever/Mild Pain (1-3) Albuterol/Ipratropium (Duoneb) 3 ml NEB [id number] [facility] Last Admin: 09/06/18 11:10 Dose: 3 ml Bisacodyl (Dulcolax) 10 mg PO DAILYPRN PRN PRN Reason: Constipation Calcium Carbonate (Tums) 1,000 mg PO Q4H PRN PRN Reason: Heartburn or Indigestion Ferrous Sulfate (Feosol) 325 mg PO DAILY [facility] Last Admin: 09/06/18 08:42 Dose: 325 mg Guaifenesin/Dextromethorphan (Robitussin Dm) 15 ml PO Q4H PRN PRN Reason: Cough Sodium Chloride (Normal Saline 0.9%) 1,000 mls @ 75 mls/hr IV .[id number] [facility] Last Admin: 09/06/18 04:23 Dose: 1,000 mls Cefepime HCl 1 gm/ Sodium (Chloride) 100 mls @ 200 mls/hr IVPB 1630 [facility] Last Admin: 09/05/18 16:58 Dose: 100 mls Vancomycin HCl 1 gm/ Device 200 mls @ 200 mls/hr IVPB 0200,1400 [facility] Last Admin: 09/06/18 02:18 Dose: 200 mls Ipratropium [place] (Atrovent) 2.5 ml NEB TID PRN PRN Reason: SOB &/or Wheezing Latanoprost (Xalatan 0.005% Ophth Soln) 1 drop EA EYE HS [facility] Last Admin: 09/05/18 21:04 Dose: 1 drop Levofloxacin (Levaquin) 250 mg PO 1000 [facility] Stop: 09/08/18 12:00 Last Admin: 09/06/18 09:51 Dose: 250 mg Lorazepam (Ativan) 1 mg SLOW IVP Q4H PRN PRN Reason: Anxiety/Agitation Methylprednisolone Sodium Succinate (Solu-Medrol) 60 mg IVP 0500,1100,1700, 2300 [facility] Last Admin: 09/06/18 09:58 Dose: 60 mg Metoprolol Succinate (Toprol Xl) 25 mg PO DAILY [facility] Last Admin: 09/06/18 08:42 Dose: 25 mg Pantoprazole Sodium (Protonix) 40 mg PO HS [facility] Last Admin: 09/05/18 20:55 Dose: 40 mg [Aricept] 23 Mg 0 each PO DAILY [facility] Senna/Docusate Sodium (Senokot S) 2 tab PO BID PRN PRN Reason: Constipation Sodium Chloride (Flush - Normal Saline) 10 ml IVF Q12HR PRN PRN Reason: Saline Flush Last Admin: 09/06/18 09:58 Dose: 10 ml Sodium Chloride (Flush - Normal Saline) 10 ml IVF PRN PRN PRN Reason: Saline Flush Valacyclovir HCl (Valtrex) 1,000 mg PO BID [facility] Last Admin: 09/06/18 10:09 Dose: Not Given Zolpidem Tartrate (Ambien) 5 mg PO HSPRN PRN PRN Reason: Insomnia
[2018-09-06 12:52] LABS: Actual Bicarbonate (HCO3a) 21.1 mEq/L (22-28); Base Excess (BEa) -1.6 mEq/L (-2.0 to +3.0); CO2 Tension 30.5 mmHg (35.0-45.0); Calcium, Ionized 1.05 mmol/L (1.12-1.30); Potassium - ABG Lab 5.26 mmol/L (3.70-5.30); pH, Arterial 7.46 (7.35-7.45)
[2018-09-06 12:53] LABS: O2 Tension (PaO2) 37.7 mmHg (> 60.0); Puncture Site LRA
[2018-09-06 12:54] LABS: ALV-art Gradient 173.725 (0-20)
[2018-09-06] MEDS: Lorazepam 2 MG/ML VIAL SLOW IVP PRN ×2 (15:12→22:41)
[2018-09-06 16:08] LABS: ANA Symphony (Qualitative) Negative (Negative); ANA Symphony (Quantitative) 0.1 Ratio (< 0.7 Negative); EliA RAS New Method **** NEW METHOD ****; EliA Thy New Method **** NEW METHOD ****; EliA Vaculitis New Method **** NEW METHOD ****; Glomerular Basemt Membrane Ab Less than 1.9 EliAU/mL (<7 Negative); Jo-1 IgG Antibody Less than 0.3 EliAU/mL (<7 Negative); Mitochondrial Ab 1.9 U/mL (<4 Negative); Rheumatoid Factor IgA Antibody 4.4 IU/mL (<14 Negative); Rheumatoid Factor IgM Antibody 8.1 IU/mL (<3.5 Negative); Thyroid Peroxidase IgG Ab Less than 4.0 IU/mL (<25 Normal); dsDNA IgG Antibody 0.6 IU/mL (<10 Negative)
[2018-09-06] MEDS: Cefepime 1 GM in Sodium Chloride 0.9% 100 ML IVPB SCH (17:43)
[2018-09-06] MEDS: Latanoprost 0.005% Ophth Soln 2.5 ml Bottle EA EYE SCH (20:49)
--- NOTE | 2018-09-06 22:16 | PRG ---
DATE OF SERVICE: 09/06/2018 SUBJECTIVE: This is an 87-year-old male who was hospitalized for progressive dyspnea and had a CAT scan of the chest, which revealed bilateral interstitial infiltrate. for cardiac arrhythmia. He has been seen by Pulmonary Medicine and there is a possibility that the patient could have pneumonitis from his amiodarone. He is on IV antibiotic therapy and also high-dose of steroids. He is on BiPAP. He is actually feeling better. He is still on BiPAP and his dyspnea has improved. OBJECTIVE: VITAL SIGNS: Afebrile. Pulse is 81 and blood pressure is 107/48. CARDIOVASCULAR: First and second heart sounds are normal. LUNGS: Bilateral rales on both sides. ABDOMEN: Soft. No organomegaly. No tenderness. Bowel sounds are normal. PLAN: Continue IV antibiotics and steroids. We will wait a day or two before considering EGD. Job ID: [id number]
[2018-09-07] MEDS: Vancomycin HCl 1 GM in Premix Bag 1 BAG IVPB SCH ×2 (03:25→17:15)
[2018-09-07 05:08] LABS: #Lymphocytes 0.4 thou/uL (1.20-3.40); #Monocytes 0.6 thou/uL (0.11-0.59); #Neutrophils 12.3 thou/uL (1.40-6.50); %Eosinophils 0.1 % (0.0-10.0); %Lymphocytes 2.8 % (21.0-51.0); %Monocytes 4.8 % (0.0-10.0); %Neutrophils 92.3 % (42.0-75.0); Hemoglobin 6.5 g/dL (14.0-18.0); Mean Corpuscular HGB CONC 30.8 g/dL (32.0-36.0); Mean Corpuscular Volume 81.2 fL (78.0-98.0); Mean Platelet Volume 7.5 fL (7.4-10.4); Platelet Count 288 thou/uL (130-400); RBC Distribution Width 14.1 % (11.5-14.5); Red Blood Cell (RBC) Count 2.59 mill/uL (4.70-6.10); White Blood Cell (WBC) Count 13.3 thou/uL (4.8-10.8)
[2018-09-07] MEDS: methylPREDNISolone Sod Succ/PF 125 MG/2 ML VIAL IVP SCH ×4 (05:23→23:00)
[2018-09-07 05:41] LABS: ALT (SGPT) 79 U/L (8-55); AST (SGOT) 82 U/L (5-34); Albumin 2.6 g/dL (3.4-4.8); Alkaline Phosphatase 145 U/L (40-150); Anion Gap 13 mmol/L (10-20); BUN (Urea Nitrogen) 54 mg/dL (8.4-25.7); Bilirubin, Total 0.4 mg/dL (0.2-1.2); Calc. Creatinine Clearance 41 mL/min (70-130); Calcium 8.3 mg/dL (7.8-10.44); Carbon Dioxide 21 mmol/L (23-31); Chloride 108 mmol/L (98-107); Estimated GFR-MDRD 47; Globulin 3.4 g/dL (2.4-3.5); Glucose 152 mg/dL (83-110); Potassium 4.8 mmol/L (3.5-5.1); Sodium 137 mmol/L (136-145)
[2018-09-07 05:54] LABS: Actual Bicarbonate (HCO3a) 18.7 mEq/L (22-28); Base Excess (BEa) -5.4 mEq/L (-2.0 to +3.0); CO2 Tension 30.1 mmHg (35.0-45.0); Calcium, Ionized 1.17 mmol/L (1.12-1.30); Carboxyhemoglobin (COHb) 1.1 gm% (0.0-3.0); Hemoglobin (Hb) 7.1 g/dL (14.0-18.0); O2 Tension (PaO2) 63.5 mmHg (> 60.0); Potassium - ABG Lab 4.64 mmol/L (3.70-5.30); pH, Arterial 7.41 (7.35-7.45)
[2018-09-07 05:55] LABS: Puncture Site LRA
[2018-09-07 05:56] LABS: ALV-art Gradient 469.275 (0-20)
[2018-09-07] MEDS ORDERED: Ventilator Sedation Protocol 1 EACH FS ONE (07:23)
[2018-09-07] MEDS ORDERED: Propofol 1,000 MG/100 ML VIAL IV ONE (07:35)
[2018-09-07] MEDS ORDERED: Lorazepam 2 MG/ML VIAL SLOW IVP PRN (07:42)
[2018-09-07] MEDS ORDERED: Fentanyl BOLUS 250 ML IVPB PRN (07:42)
[2018-09-07] MEDS ORDERED: Propofol BOLUS 1,000 MG/100 ML VIAL IV PRN (07:42)
[2018-09-07] MEDS ORDERED: fentaNYL Citrate/PF 2,000 MCG in Sodium Chloride 0.9% 60 ML IV SCH (07:42)
[2018-09-07] MEDS ORDERED: Morphine 2 MG/ML SYRINGE SLOW IVP PRN (07:42)
[2018-09-07 09:04] LABS: Actual Bicarbonate (HCO3a) 20.7 mEq/L (22-28); Base Excess (BEa) -4.3 mEq/L (-2.0 to +3.0); Calcium, Ionized 1.14 mmol/L (1.12-1.30); Carboxyhemoglobin (COHb) 1.6 gm% (0.0-3.0); Hemoglobin (Hb) 6.7 g/dL (14.0-18.0); O2 Tension (PaO2) 66.7 mmHg (> 60.0); Potassium - ABG Lab 4.59 mmol/L (3.70-5.30); pH, Arterial 7.37 (7.35-7.45)
--- NOTE | 2018-09-07 09:05 | RAD ---
PORTABLE CHEST: Date: 09/07/18 HISTORY: Respiratory distress. COMPARISON: 09/04/18 study. FINDINGS: Patient is rotated on this examination. Heart size is within normal limits. The parenchymal changes in the right lung appear similar to the p rior examination. Changes in the left lung appear slightly worsened. I am not certain how much of thi s is just possibly related to the rotation causing this difference in appearance. IMPRESSION: Bilateral infiltrative lung changes, not improved, with some of the changes in the left lung, specifi ro left upper lobe, which appear worse as compared to the prior 09/04/18 study. POS: OFF
[2018-09-07 09:06] LABS: Puncture Site RR
--- NOTE | 2018-09-07 09:06 | PRG ---
DATE OF SERVICE: 09/05/2018 This is a 45 minutes critical time. SUBJECTIVE: The patient has continued to worsen overnight in terms of oxygenation. His x-ray is much worse. OBJECTIVE: VITAL SIGNS: Temperature is 97.9, pulse 80, and blood pressure 134/99. A 24-hour intake 1525, output 575. GENERAL: He has decreased responsiveness compared yesterday. HEENT: Remarkable for edentulous gentleman. NECK: No JVD. CHEST: Coarse rhonchi. CARDIAC: S1 and S2, regular. ABDOMEN: Soft. EXTREMITIES: No edema. LABORATORY DATA: White blood cell count 13, hematocrit 21, platelet count 288. Sodium 137, potassium 4.8, chloride 108, CO2 of 21, BUN 54, creatinine 1.4, and glucose 152. His immunology panel shows slightly elevated rheumatoid factor. IgM otherwise was negative. Chest x-ray shows worsening interstitial infiltrates. ASSESSMENT: 1. Progressive acute hypoxic respiratory failure, requiring mechanical ventilation. 2. Bilateral pneumonitis, which I suspect is probably aspiration of GI contents - see bronchoscopy note. 3. Possibility of amiodarone toxicity, although, I doubt it based on findings of bronchoscopy. PLAN: 1. I spoke with the daughter, told her we needed to either intubate or put DNR on the chart. She agreed to be aggressive and the patient was intubated. 2. The patient will be placed on mechanical ventilation with high PEEP. 3. Bronchoalveolar lavage. 4. Continue IV antibiotics. He needs some anaerobic coverage, so I will add Cleocin to the current regimen. 5. Prognosis remains quite poor despite aggressive intervention. Job ID: [id number]
[2018-09-07] MEDS: Pantoprazole 40 MG VIAL IVP SCH (11:04)
[2018-09-07] MEDS: valACYclovir 500 MG TAB PO SCH ×2 (11:05→23:01)
[2018-09-07] MEDS: Propofol 1,000 MG/100 ML VIAL IV PRN ×2 (14:00→20:40)
--- NOTE | 2018-09-07 14:41 | OP ---
DATE OF PROCEDURE: 09/07/2018 PROCEDURE PERFORMED: Bronchoscopy with bronchoalveolar lavage, fiberoptic intubation. PREOPERATIVE DIAGNOSIS: Respiratory failure. POSTOPERATIVE DIAGNOSES: Respiratory failure/pneumonia. DESCRIPTION OF PROCEDURE: Informed consent was obtained from the patient's daughter over the phone. The patient was placed in the supine position. He was on BiPAP with 100% FiO2 prior to the procedure to preoxygenate. A 7.5 endotracheal tube was placed over an Olympus bronchoscope. Initially when looking in the mouth, there were copious secretions present. These were removed. The patient was intubated on the first attempt fiberoptically through his vocal cords with the bronchoscope. The patient had copious brown secretions come out of the endotracheal tube upon intubation. These were suctioned. SUBJECTIVE: The patient was placed in mechanical ventilation. Scope was placed through the endotracheal tube adapter. There were copious brown secretions present in the right mainstem bronchus into the right lower lobe, right middle lobe. These were removed and lavaged with normal saline. Lavage was done in the right middle lobe. The left side was fairly clear. The procedure was tolerated well. The tip of the endotracheal tube was approximately 4 cm above the sam. Job ID: [id number]
[2018-09-07] MEDS: Clindamycin/D5W 900 MG in Premix Bag 1 BAG IVPB SCH ×2 (15:02→23:00)
[2018-09-07 16:16] LABS: Vancomycin, Trough 22.5 ug/mL
[2018-09-07] MEDS ORDERED: Sodium Chloride 0.9% 1,000 ML IV SCH (16:30)
[2018-09-07] MEDS ORDERED: Norepinephrine 8 MG/0.9% NS 250 ML ONE (16:35)
[2018-09-07] MEDS: Norepinephrine 8 MG/0.9% NS 250 ML IVPB SCH (16:42)
[2018-09-07 17:14] LABS: Cytoplasmic (C-ANCA) <1:20 titer (Neg:<1:20); Myeloperoxidase AutoAbs <9.0 U/mL (0.0-9.0); Perinuclear (P-ANCA) <1:20 titer (Neg:<1:20); Proteinase-3 AutoAbs Less than 3.5 U/mL (0.0-3.5)
[2018-09-07] MEDS: Cefepime 1 GM in Sodium Chloride 0.9% 100 ML IVPB SCH (17:17)
--- NOTE | 2018-09-07 17:30 | RAD ---
AP VIEW CHEST 09/07/18 HISTORY: Central line placement. AP view chest is obtained on 09/07/18. Comparison made to previous exam from earlier in the day, 09/07/18. AP view chest demonstrates nasogastric tube in place, distal tip not seen. Endotracheal tube is in go od position above sam. There has been placement of a right jugular central line, distal tip overly ing the right atrium. A dual lead intracardiac pacing device is seen. Cardiomegaly is seen. Pulmonary vascular congestion seen. There is diffuse bilateral air space opacities concerning for pulmonary edema or ARDS unchanged since the previous exam. IMPRESSION: Placement of nasogastric tube, endotracheal tube and right jugular central line. POS: [facility]
--- NOTE | 2018-09-07 18:08 | PDOC.EVN ---
Event Note - Event Note Event Note: 11:18am spoke with pt's daughter Sherry, Pitcher about pt's overall medical condition. Showed her patient's xray and explained to her that even though he was intubated it is hard to oxygenate him given his pneumonia. Also explained to her that if we increase pressure to oxygenate him this can cause more injury thus more inflammation and even penumothorax. she understands and was very emotional. She has agreed to make him DNR for now.
--- NOTE | 2018-09-07 18:14 | PDOC.PN ---
- Subjective Encounter Start Date: 09/07/18 Encounter Start Time: 11:00 Subjective: pt intubated - Objective Resuscitation Status - Order Detail: 09/07/18 11:53 Resuscitation Status Routine Resuscitation Status: DNAR: NO Resuscitation Discussed with: with daughter daniela murguia Vital Signs & Weight: Vital Signs (12 hours) Temp Pulse Resp BP Pulse Ox 09/07/18 16:00 98.9 F 33 H 09/07/18 15:00 99.0 F 09/07/18 14:11 90 86/47 L 09/07/18 14:09 90 33 H 91 L 09/07/18 14:00 33 H 09/07/18 12:39 98.2 F 09/07/18 12:00 98.8 F 32 H 09/07/18 10:24 72 89/38 L 09/07/18 10:23 70 30 H 90 L 09/07/18 10:00 34 H 09/07/18 09:39 72 95/37 L 09/07/18 09:00 98.1 F 09/07/18 08:00 31 H 95 09/07/18 06:38 79 34 H 97 Weight Admit Weight 175 lb Weight 178 lb Most Recent Monitor Data Heart Rate from ECG 94 NIBP 96/51 NIBP BP-Mean 66 Respiration from ECG 28 SpO2 98 I&O: 09/06/18 09/07/18 09/08/18 06:59 06:59 06:59 Intake Total 1188 1525 350 Output Total 375 575 402 Balance 813 950 -52 Result Diagrams: 09/07/18 04:39 09/07/18 04:39 Phys Exam - Physical Examination Neck: no nodes, no JVD, supple, full ROM diminished Cardiovascular: RRR, no significant murmur, no rub, gallop, irregular Gastrointestinal: soft, positive bowel sounds Dx/Plan (1) Acute respiratory failure with hypoxia Code(s): J96.01 - ACUTE RESPIRATORY FAILURE WITH HYPOXIA Status: Acute Comment: on bipap (2) PNA (pneumonia) Code(s): J18.9 - PNEUMONIA, UNSPECIFIED ORGANISM Status: Acute Qualifiers: Pneumonia type: due to unspecified organism Laterality: bilateral (3) Moderate protein malnutrition Code(s): E44.0 - MODERATE PROTEIN-CALORIE MALNUTRITION Status: Chronic (4) CRYSTAL (acute kidney injury) Code(s): N17.9 - ACUTE KIDNEY FAILURE, UNSPECIFIED Status: Acute - Plan will continue abx -: pt's overall prognosis is poor -: will talk to daughter to make him dnr * . Review of Systems - Review of Systems Other: unable to perform - Medications/Allergies Allergies/Adverse Reactions: Allergies Allergy/AdvReac Type Severity Reaction Status Date / Time aspirin Allergy Verified 09/05/18 03:02 Penicillins Allergy Verified 09/05/18 03:02 Medications: Current Medications Acetaminophen (Tylenol) 650 mg PO Q4H PRN PRN Reason: Headache/Fever/Mild Pain (1-3) Albuterol/Ipratropium (Duoneb) 3 ml NEB [id number] [facility] Last Admin: 09/07/18 14:09 Dose: 3 ml Bisacodyl (Dulcolax) 10 mg PO DAILYPRN PRN PRN Reason: Constipation Calcium Carbonate (Tums) 1,000 mg PO Q4H PRN PRN Reason: Heartburn or Indigestion Guaifenesin/Dextromethorphan (Robitussin Dm) 15 ml PO Q4H PRN PRN Reason: Cough Sodium Chloride (Normal Saline 0.9%) 1,000 mls @ 75 mls/hr IV .[id number] [facility] Last Admin: 09/06/18 20:48 Dose: 1,000 mls Cefepime HCl 1 gm/ Sodium (Chloride) 100 mls @ 200 mls/hr IVPB 1630 [facility] Last Admin: 09/07/18 17:17 Dose: 100 mls Fentanyl Citrate 2,000 mcg/ (Sodium Chloride) 100 mls @ 0 mls/hr IV INF [facility]; Protocol Stop: 10/07/18 07:42 Fentanyl Citrate (Fentanyl Bolus) 250 mls @ 0 mls/hr IVPB PRN PRN PRN Reason: Breakthrough pain/agitation Stop: 10/07/18 07:42 Clindamycin Phosphate/Dextrose (900 mg/ Device) 50 mls @ 100 mls/hr IVPB Q8HR [facility] Last Admin: 09/07/18 15:02 Dose: 50 mls Norepinephrine Bitartrate (Levophed) 250 mls @ 0 mls/hr IVPB INF [facility]; Protocol Last Admin: 09/07/18 16:42 Dose: 250 mls Vancomycin HCl 750 mg/ Sodium (Chloride) 250 mls @ 250 mls/hr IVPB 0600,1800 [facility] Ipratropium [place] (Atrovent) 2.5 ml NEB TID PRN PRN Reason: SOB &/or Wheezing Latanoprost (Xalatan 0.005% Ophth Soln) 1 drop EA EYE HS [facility] Last Admin: 09/06/18 20:49 Dose: 1 drop Levofloxacin (Levaquin) 250 mg PO 1000 [facility] Stop: 09/08/18 12:00 Last Admin: 09/07/18 11:05 Dose: 250 mg Lorazepam (Ativan) 2 mg SLOW IVP Q1H PRN PRN Reason: Breakthrough agitation Stop: 10/07/18 07:42 Methylprednisolone Sodium Succinate (Solu-Medrol) 60 mg IVP 0500,1100,1700, 2300 [facility] Last Admin: 09/07/18 17:17 Dose: 60 mg Morphine Sulfate (Morphine) 2 mg SLOW IVP Q1H PRN PRN Reason: BREAKTHROUGH PAIN/Agitation Stop: 10/07/18 07:42 Pantoprazole Sodium (Protonix) 40 mg IVP DAILY [facility] Last Admin: 09/07/18 11:04 Dose: 40 mg [Aricept] 23 Mg 0.5 each PO DAILY [facility] Last Admin: 09/07/18 11:05 Dose: 0.5 each Propofol (Diprivan) 1,000 mg IV INF PRN; Protocol PRN Reason: TO ACHIEVE GOAL RASS Stop: 10/07/18 07:42 Last Admin: 09/07/18 14:00 Dose: 1,000 mg Propofol (Diprivan Bolus) 20 mg IV Q5MIN PRN PRN Reason: BREAKTHROUGH AGITATION Stop: 10/07/18 07:42 Senna/Docusate Sodium (Senokot S) 2 tab PO BID PRN PRN Reason: Constipation Sodium Chloride (Flush - Normal Saline) 10 ml IVF Q12HR PRN PRN Reason: Saline Flush Last Admin: 09/06/18 09:58 Dose: 10 ml Sodium Chloride (Flush - Normal Saline) 10 ml IVF PRN PRN PRN Reason: Saline Flush Last Admin: 09/06/18 15:13 Dose: 10 ml Valacyclovir HCl (Valtrex) 1,000 mg PO BID [facility] Last Admin: 09/07/18 11:05 Dose: 1,000 mg
[2018-09-07] MEDS: Vancomycin HCl 750 MG in Sodium Chloride 0.9% 250 ML 250 ML IVPB SCH (18:24)
[2018-09-07] MEDS: Sodium Chloride 0.9% 1,000 ML IV SCH (20:41)
[2018-09-07 22:05] LABS: Hemoglobin 7.1 g/dL (14.0-18.0); Platelet Count 239 thou/uL (130-400)
[2018-09-07] MEDS ORDERED: Heparin 25,000 units/D5W 500 ML IV SCH (22:45)
[2018-09-07] MEDS ORDERED: Heparin 10,000 UNITS/ 10 ML VIAL SLOW IVP SCH (22:45)
--- NOTE | 2018-09-07 22:58 | OP ---
DATE OF PROCEDURE: 09/07/2018 PROCEDURE: Right IJ central line placement. PREOPERATIVE DIAGNOSIS: Poor IV access, need for vasopressor administration. POSTOPERATIVE DIAGNOSIS: Successful right IJ central line placement. ANESTHESIA: 1% lidocaine without epinephrine local at the site. DESCRIPTION OF PROCEDURE: Informed consent was obtained from the patient's daughter. The patient was placed in the Trendelenburg position. The right IJ vein was 1st located by ultrasound. The site was cleansed with chlorhexidine and draped sterilely. 1% lidocaine was used at the entry site and also used to locate the vessel. A small IV introducer was used to cannulate the vessel. A wire was passed through the IV and the IV was removed. Triple-lumen catheter was placed over the wire after the vessel was dilated. Three ports flushed of venous blood. The patient tolerated the procedure well and a postoperative x-ray is pending. Job ID: [id number]
[2018-09-07] MEDS: Latanoprost 0.005% Ophth Soln 2.5 ml Bottle EA EYE SCH (23:01)
--- NOTE | 2018-09-07 23:10 | ULT ---
ULTRASOUND DOPPLER DUPLEX ARTERIAL RIGHT LOWER EXTREMITY: 09/07/18 at 10:24 p.m. HISTORY: 87-year-old male with loss of right pedal pulse. TECHNIQUE: Araya scale, color flow, with spectral analysis, of major arteries of the right lower extremity. FINDINGS: There is extensive, moderate to severe atherosclerosis of all visualized arteries. Highest peak systolic velocities in cm/s followed by pulsed Doppler waveforms are as follows: Common femoral: 50, triphasic. Superficial femoral, proximal: 65, triphasic. Superficial femoral, mid: 45, biphasic. Superficial femoral, distal: 50, triphasic. Popliteal: 45, triphasic. Posterior tibial, proximal: Not visualized. Posterior tibial, mid: 5, monophasic. Posterior tibial, distal: 5, monophasic. Anterior tibial, distal: 3, monophasic. Dorsalis pedis: 2, monophasic. IMPRESSION: 1. Severe atherosclerosis of the arteries. 2. 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 POS: [facility]
--- NOTE | 2018-09-07 23:38 | PDOC.EVN ---
Event Note - Event Note Event Note: there is acute right lower foot discoloration, vascular doppler showed severe atherosclerosis with low blood flow, discussed with daughter she is ok with heparin and also with vascular evaluation if beneficial, discussed with vascular , likely due to underlying severe pvd, will continue heparin for now unless pt bleeds, to be monitored and reassessed in the morning for further plan. Very poor prognosis
[2018-09-08] MEDS: methylPREDNISolone Sod Succ/PF 125 MG/2 ML VIAL IVP SCH ×4 (05:15→22:00)
[2018-09-08] MEDS: Clindamycin/D5W 900 MG in Premix Bag 1 BAG IVPB SCH ×3 (05:15→21:59)
[2018-09-08 05:22] LABS: Hemoglobin 6.7 g/dL (14.0-18.0); Mean Corpuscular HGB CONC 30.8 g/dL (32.0-36.0); Mean Corpuscular Volume 84.4 fL (78.0-98.0); Mean Platelet Volume 7.8 fL (7.4-10.4); Platelet Count 229 thou/uL (130-400); RBC Distribution Width 13.9 % (11.5-14.5); Red Blood Cell (RBC) Count 2.59 mill/uL (4.70-6.10); White Blood Cell (WBC) Count 16.3 thou/uL (4.8-10.8)
[2018-09-08 06:01] LABS: Band 17 % (5-11); Lymphocytes 4 % (21-51); MDiff Complete? YES; Monocytes 3 % (0-10); Neutrophil 76 % (42-75)
[2018-09-08] MEDS: Propofol 1,000 MG/100 ML VIAL IV PRN ×2 (06:28→12:50)
[2018-09-08] MEDS: Vancomycin HCl 750 MG in Sodium Chloride 0.9% 250 ML 250 ML IVPB SCH (06:28)
[2018-09-08 07:29] LABS: Base Excess (BEa) -6.2 mEq/L (-2.0 to +3.0); CO2 Tension 51.3 mmHg (35.0-45.0); Carboxyhemoglobin (COHb) 1.7 gm% (0.0-3.0); Hemoglobin (Hb) 7.3 g/dL (14.0-18.0); O2 Tension (PaO2) 61.9 mmHg (> 60.0); Potassium - ABG Lab 5.31 mmol/L (3.70-5.30); pH, Arterial 7.23 (7.35-7.45)
[2018-09-08 07:30] LABS: ALV-art Gradient 301.775 (0-20); Puncture Site L.R.
[2018-09-08 07:40] LABS: PTT Greater than 250.0 SEC (22.9-36.1)
[2018-09-08] MEDS ORDERED: methylPREDNISolone Sod Succ/PF 125 MG/2 ML VIAL IVP SCH (07:45)
--- NOTE | 2018-09-08 08:06 | PRG ---
DATE OF SERVICE: 09/08/2018 TIME SPENT: 35 minutes critical care time. SUBJECTIVE: Mr. Higginbotham remains intubated on mechanical ventilation. He developed a cold right lower extremity last night. He was seen by Vascular Surgery this morning. PHYSICAL EXAMINATION: VITAL SIGNS: The patient is sedated heavily on mechanical ventilation. Temperature is 97.9, pulse 86, blood pressure 107/55. He is on Levophed drip at 4 mcg/minute. His 24-hour intake was 5051 mL, output 897 mL. NEUROLOGIC: He will not follow commands. 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 NECK: No JVD. CHEST: Crackles bilaterally. CARDIAC: S1, S2 regular. ABDOMEN: Soft, nontender. EXTREMITIES: He has coolness to the right foot. LABORATORY DATA: PH of 7.23, pCO2 of 51, PO2 of 61, that is on BiLevel, rate 20, high pressure 30, low pressure 13, inspiratory time 1 second, pressure support 14, FiO2 of 60%. White blood cell count 16.3, hemoglobin 6.7, hematocrit 21.9, platelet count 229. Chemistry was not done today. Chest x-ray demonstrates bilateral infiltrative changes, but this severely turned x-ray towards the right. I think overall, the infiltrative changes look a little better than what we saw at the beginning of the day yesterday. ASSESSMENT: 1. The patient is most likely suffering from aspiration pneumonia. At the time he was intubated yesterday, he had tons of brown liquid secretions present in his lungs from what was previously in his esophagus. I doubt that this is amiodarone toxicity, although that was in the differential at the time that he was brought in. 2. Multiple organ failure including respiratory failure, renal failure, severe anemia, etc. PLAN: 1. The patient is not weanable at this time. 2. I will stop the heparin drip that was started last night. Vascular Surgery does not feel that will be helpful in the management of this patient. 3. I will begin weaning his steroids. 4. Consider discontinuing the vancomycin for the time being. Could be restarted if MRSA comes from cultures. I am really trying to protect his kidneys more than anything else. 5. I spoke with Dr. Botello yesterday. He will probably perform an EGD today. 6. Start tube feeds after EGD. 7. Try to wean off Levophed drip. 8. Updated family yesterday afternoon. The patient's prognosis is quite poor. A do not attempt resuscitation order is now on the chart. Job ID: [id number]
--- NOTE | 2018-09-08 08:41 | RAD ---
CHEST 1 VIEW: Date: 09/08/18 HISTORY: Dyspnea. Intubated. Follow-up. COMPARISON: 09/07/18. FINDINGS: Cardiac silhouette is magnified by projection. Pulmonary vasculature is less engorged than on the constantin or study. Patchy areas of parenchymal opacity throughout each lung are again demonstrated, slightly i mproved on the left. Rightward shift of the mediastinum is again demonstrated. Lines and tubes appear unchanged in position. IMPRESSION: Slight interval improved aeration of the left lung. Pulmonary vascular congestion and patchy parenchy mal infiltrates are otherwise stable. POS: [facility]
[2018-09-08] MEDS: Pantoprazole 40 MG VIAL IVP SCH (08:42)
[2018-09-08] MEDS: Sodium Chloride 0.9% 1,000 ML IV SCH ×2 (08:55→22:01)
--- NOTE | 2018-09-08 09:11 | PRG ---
DATE OF SERVICE: 09/07/2018 SUBJECTIVE: This is an 87-year-old male who was hospitalized three days ago with dyspnea, was found to have bilateral interstitial infiltrates. He was on the antibiotics and IV steroids. He was on BiPAP for two days, but has been intubated. My plan was for EGD when he was admitted, but unfortunately because of his poor status, I could not do an EGD. I did speak to Dr. Francois, his special needs babysitter. He feels the patient extensively aspirated most likely from esophageal obstruction. However, the patient has dysphagia. I have discussed with Dr. Francois and suggests to go ahead and to do the EGD. He is on the ventilator. No family available in the room. PHYSICAL EXAMINATION: GENERAL: He is on the ventilator. VITAL SIGNS: Temperature is 98, pulse is 91, blood pressure is 96/59. CARDIOVASCULAR: First and second heart sounds. LUNGS: Bilateral rales. ABDOMEN: Abdomen is soft. Abdomen is nondistended. LABORATORY DATA: Most recent lab data from today; WBC 94229, hemoglobin dropping down to 6.5, hematocrit 21, MCV is 81.2. Serum chemistries today, sodium 137, potassium 4.8, chloride 108, bicarb 21, BUN is 54, creatinine is kind of 1.43, AST is 82, ALT 79, alkaline phosphatase 145. PLAN: 1. Continue ventilator support. 2. EGD tomorrow morning to see whether he has any esophageal obstruction to causes his aspiration. Job ID: [id number]
--- NOTE | 2018-09-08 12:52 | PDOC.PN ---
- Subjective Encounter Start Date: 09/08/18 Encounter Start Time: 10:30 Subjective: pt intubated - Objective Resuscitation Status - Order Detail: 09/07/18 11:53 Resuscitation Status Routine Resuscitation Status: DNAR: NO Resuscitation Discussed with: with daughter daniela murguia Vital Signs & Weight: Vital Signs (12 hours) Temp Pulse Pulse Resp BP BP Pulse Ox 09/08/18 12:42 95.9 F L 75 33 H 109/64 98 09/08/18 12:00 33 H 09/08/18 10:35 77 132/64 09/08/18 10:33 77 37 H 92 L 09/08/18 10:31 97.5 F L 78 39 H 132/64 92 L 09/08/18 10:00 32 H 09/08/18 08:00 41 H 09/08/18 07:20 96 09/08/18 07:00 97.5 F L 09/08/18 06:45 83 94/55 L 09/08/18 06:43 83 27 H 94 L 09/08/18 06:00 21 H 09/08/18 04:00 25 H 09/08/18 02:26 88 108/61 09/08/18 02:24 88 20 98 09/08/18 02:00 21 H Weight Admit Weight 175 lb Weight 182 lb 15.739 oz Most Recent Monitor Data Heart Rate from ECG 79 NIBP 129/70 NIBP BP-Mean 89 Respiration from ECG 30 SpO2 93 I&O: 09/07/18 09/08/18 09/09/18 06:59 06:59 06:59 Intake Total 1525 5051.6 50 Output Total 575 987 275 Balance 950 4064.6 -225 Result Diagrams: 09/08/18 04:45 09/07/18 04:39 Phys Exam - Physical Examination Neck: no nodes, no JVD, supple, full ROM diminished all over Cardiovascular: RRR, no significant murmur, no rub, gallop, irregular Gastrointestinal: soft, positive bowel sounds right left cool to touch mottling noted Dx/Plan (1) Acute respiratory failure with hypoxia Code(s): J96.01 - ACUTE RESPIRATORY FAILURE WITH HYPOXIA Status: Acute Comment: on bipap (2) PNA (pneumonia) Code(s): J18.9 - PNEUMONIA, UNSPECIFIED ORGANISM Status: Acute Qualifiers: Pneumonia type: due to unspecified organism Laterality: bilateral (3) Moderate protein malnutrition Code(s): E44.0 - MODERATE PROTEIN-CALORIE MALNUTRITION Status: Chronic (4) CRYSTAL (acute kidney injury) Code(s): N17.9 - ACUTE KIDNEY FAILURE, UNSPECIFIED Status: Acute (5) Anemia Code(s): D64.9 - ANEMIA, UNSPECIFIED Status: Acute Qualifiers: Anemia type: unspecified type Qualified Code(s): D64.9 - Anemia, unspecified - Plan spoke with daughter and explained that his overall prognosis is poor -: gi consulted for EGD due to low hh -: severe arterial obst to right lower ext not a surgical candidate -: abx per pulmonary -: overall prognosis poor, palliative consulted * . Review of Systems - Review of Systems Other: unable to obtain - Medications/Allergies Allergies/Adverse Reactions: Allergies Allergy/AdvReac Type Severity Reaction Status Date / Time aspirin Allergy Verified 09/05/18 03:02 Penicillins Allergy Verified 09/05/18 03:02 Medications: Current Medications Acetaminophen (Tylenol) 650 mg PO Q4H PRN PRN Reason: Headache/Fever/Mild Pain (1-3) Albuterol/Ipratropium (Duoneb) 3 ml NEB [id number] [facility] Last Admin: 09/08/18 10:33 Dose: 3 ml Bisacodyl (Dulcolax) 10 mg PO DAILYPRN PRN PRN Reason: Constipation Calcium Carbonate (Tums) 1,000 mg PO Q4H PRN PRN Reason: Heartburn or Indigestion Guaifenesin/Dextromethorphan (Robitussin Dm) 15 ml PO Q4H PRN PRN Reason: Cough Sodium Chloride (Normal Saline 0.9%) 1,000 mls @ 75 mls/hr IV .[id number] [facility] Last Admin: 09/08/18 08:55 Dose: 1,000 mls Cefepime HCl 1 gm/ Sodium (Chloride) 100 mls @ 200 mls/hr IVPB 1630 [facility] Last Admin: 09/07/18 17:17 Dose: 100 mls Fentanyl Citrate 2,000 mcg/ (Sodium Chloride) 100 mls @ 0 mls/hr IV INF [facility]; Protocol Stop: 10/07/18 07:42 Fentanyl Citrate (Fentanyl Bolus) 250 mls @ 0 mls/hr IVPB PRN PRN PRN Reason: Breakthrough pain/agitation Stop: 10/07/18 07:42 Clindamycin Phosphate/Dextrose (900 mg/ Device) 50 mls @ 100 mls/hr IVPB Q8HR [facility] Last Admin: 09/08/18 05:15 Dose: 50 mls Norepinephrine Bitartrate (Levophed) 250 mls @ 0 mls/hr IVPB INF [facility]; Protocol Last Admin: 09/07/18 16:42 Dose: 250 mls Ipratropium [place] (Atrovent) 2.5 ml NEB TID PRN PRN Reason: SOB &/or Wheezing Latanoprost (Xalatan 0.005% Ophth Soln) 1 drop EA EYE HS [facility] Last Admin: 09/07/18 23:01 Dose: 1 drop Lorazepam (Ativan) 2 mg SLOW IVP Q1H PRN PRN Reason: Breakthrough agitation Stop: 10/07/18 07:42 Methylprednisolone Sodium Succinate (Solu-Medrol) 20 mg IVP 0500,1100,1700, 2300 [facility] Last Admin: 09/08/18 11:12 Dose: 20 mg Morphine Sulfate (Morphine) 2 mg SLOW IVP Q1H PRN PRN Reason: BREAKTHROUGH PAIN/Agitation Stop: 10/07/18 07:42 Pantoprazole Sodium (Protonix) 40 mg IVP DAILY [facility] Last Admin: 09/08/18 08:42 Dose: 40 mg [Aricept] 23 Mg 0.5 each PO DAILY [facility] Last Admin: 09/08/18 08:52 Dose: 0.5 each Propofol (Diprivan) 1,000 mg IV INF PRN; Protocol PRN Reason: TO ACHIEVE GOAL RASS Stop: 10/07/18 07:42 Last Admin: 09/08/18 12:50 Dose: 1,000 mg Propofol (Diprivan Bolus) 20 mg IV Q5MIN PRN PRN Reason: BREAKTHROUGH AGITATION Stop: 10/07/18 07:42 Senna/Docusate Sodium (Senokot S) 2 tab PO BID PRN PRN Reason: Constipation Sodium Chloride (Flush - Normal Saline) 10 ml IVF Q12HR PRN PRN Reason: Saline Flush Last Admin: 09/08/18 08:42 Dose: 10 ml Sodium Chloride (Flush - Normal Saline) 10 ml IVF PRN PRN PRN Reason: Saline Flush Last Admin: 09/06/18 15:13 Dose: 10 ml
[2018-09-08 14:39] VITALS: BMI 27.0
--- NOTE | 2018-09-08 14:43 | CON ---
DATE OF CONSULTATION: 09/08/2018 REQUESTING PHYSICIAN: Oniel Bingham MD REASON FOR CONSULTATION: Ischemic right lower extremity. HISTORY OF PRESENT ILLNESS: The patient is an 87-year-old man, who is critically ill and on the ventilator on rather heroic settings to support his respiratory insufficiency. The patient presented to the hospital about 2 weeks ago with generalized weakness and to the point of falling down and he spent about 10 or 12 days in the hospital. The day after being discharged to rehab, he was sent back to the hospital because of weakness, falling, a productive cough, and hypoxia. In the emergency room, he was afebrile. His respirations were about 20 per minute, but his O2 sats were 94 on non-rebreather mask. The patient had had a suggestion of bilateral pulmonary infiltrates, worse on the right than on the left during his previous hospitalization and they had significantly worsened in the interim. He deteriorated to the point of requiring intubation yesterday morning and late yesterday afternoon or early evening, he was noted to have lost the previously palpable dorsalis pedis pulse in his right foot. An arterial Doppler demonstrated monophasic flow in the tibial vessels and in the foot, but suggested severe underlying trifurcation vessel disease and I was contacted a little before midnight about seeing the patient in the morning as in spite of his quite severe illness. His family wished to get input from Vascular Surgery. PAST MEDICAL HISTORY: Significant for coronary artery disease. He has had a dual-chamber pacemaker placed. He has undergone chemotherapy for bladder cancer that was diagnosed in 2005. He has sleep apnea and is on CPAP at night. He has had a previous right knee replacement, shoulder surgery, cholecystectomy, prostatectomy, herniorrhaphy, and vasectomy. MEDICATIONS: The patient's home medications were; 1. Losartan. 2. Amiodarone. 3. Benazepril. 4. Toprol. 5. Xarelto. 6. Ipratropium. 7. [place] eye drops. 8. Iron. 9. Pantoprazole. 10. Bactrim. 11. Istalol. His current medications include; 1. Cefepime. 2. Clindamycin. 3. Aricept. 4. Protonix. 5. Diprivan. 6. Levophed. 7. Heparin. ALLERGIES: HE REPORTS ALLERGIES TO ASPIRIN AND PENICILLINS. SOCIAL HISTORY: He has a negative smoking history. REVIEW OF SYSTEMS: Unobtainable as his family history. PHYSICAL EXAMINATION: GENERAL: The patient is an elderly man intubated and sedated. ABDOMEN: He has a soft abdomen. EXTREMITIES: Easily palpable femoral pulses bilaterally with slightly diminished dorsalis pedis pulse on the left side. I was not able to palpate the popliteals or posterior tibials on either side. I was not able to palpate the right dorsalis pedis. The entirety of the left lower extremity is warm. The right lower extremity begins to get noticeably cool in the ankle. The foot is noticeably pale. The dorsum of the foot other than being pale is unremarkable, but there is some purplish mottling on the plantar aspect that is modest along the arch of the foot medially and even during the course of my exam waxing and waning in its intensity, but there is some fairly significant mottling laterally on the plantar aspect of the foot. The nurse reported that his posterior tibial pulse is intermittently identifiable with the Doppler, I was not able to find the dorsalis pedis, posterior tibial, or peroneal pulses in that foot. The ankle was freely mobile. The compartments were quite soft. His saphenous vein was full and when I stripped, it refilled in less than a second. The veins on the dorsum of the foot were not quite as full and refilled a little bit more slowly, but still did so in less than a second. LABORATORY DATA: His white count is now 16.3, hemoglobin is 6.7, hematocrit 21.9, platelets 229,000. His hemoglobin was 7.2 on admission and it drifted down to 6.5 yesterday. During his previous admission, it started off at 8.9, then really had not been checked again until about 10 days later when it was 8.0. His potassium is 4.8, glucose 152, BUN 54, creatinine 1.43. Two days ago, his creatinine was 1.74, on 09/04/2018 it was 1.79. On 08/23/2018, his BUN was 22 and creatinine 1.20. His albumin is 2.8 cm. BNP was 104.8. On 09/04/2018, his chest x-rays showed progression of bilateral infiltrates, worse on the right than on the left and he is now intubated. IMPRESSION AND RECOMMENDATIONS: Historically, the patient has not had any atrial fibrillation during this hospitalization. I do not have any knowledge of his cardiac status beyond what one can suppose from the presence of his pacemaker and his normal medications. His heart is a little bit large and rounded, however, it would be somewhat unusual to have a cardiac source of embolus that would be small enough to make it all the way down into the tibial vessels and cause ischemia. Unfortunately, the patient's ventilatory status is such that he is so tenuous simply transporting him someplace for a further evaluation or for care elsewhere in the hospital is not going to be feasible. At the point of my exam first thing in the morning, his foot looks like it might be viable. The ankle is still mobile on the compartment, musculature is quite soft. The heparinization that got started during the night, probably is not going to really make any difference with respect to his leg and unfortunately this is just simply going to have to declare itself. It is either going to get better or it is not and there is not much that I have to offer. Job ID: [id number]
[2018-09-08] MEDS: Cefepime 1 GM in Sodium Chloride 0.9% 100 ML IVPB SCH (15:36)
[2018-09-08] MEDS: Latanoprost 0.005% Ophth Soln 2.5 ml Bottle EA EYE SCH (22:00)
[2018-09-09 05:34] LABS: Anion Gap 12 mmol/L (10-20); BUN (Urea Nitrogen) 67 mg/dL (8.4-25.7); Calc. Creatinine Clearance 37 mL/min (70-130); Calcium 7.7 mg/dL (7.8-10.44); Carbon Dioxide 20 mmol/L (23-31); Chloride 112 mmol/L (98-107); Estimated GFR-MDRD 40; Glucose 145 mg/dL (83-110); Potassium 5.6 mmol/L (3.5-5.1); Sodium 138 mmol/L (136-145)
[2018-09-09] MEDS: Propofol 1,000 MG/100 ML VIAL IV PRN ×3 (06:17→21:22)
[2018-09-09] MEDS: Clindamycin/D5W 900 MG in Premix Bag 1 BAG IVPB SCH ×3 (06:17→21:21)
[2018-09-09] MEDS: methylPREDNISolone Sod Succ/PF 125 MG/2 ML VIAL IVP SCH ×4 (06:18→23:21)
[2018-09-09 06:32] LABS: Band 12 % (5-11); Hemoglobin 7.7 g/dL (14.0-18.0); Hypochromia SLIGHT = 6-15 cells (100X) (0-5/hpf); Lymphocytes 6 % (21-51); MDiff Complete? YES; Mean Corpuscular HGB CONC 30.6 g/dL (32.0-36.0); Mean Corpuscular Hemoglobin 25.8 pg (27.0-31.0); Mean Corpuscular Volume 84.4 fL (78.0-98.0); Mean Platelet Volume 7.4 fL (7.4-10.4); Monocytes 6 % (0-10); Myelocyte 1 % (0-0); Neutrophil 75 % (42-75); Nucleated RBC 2 % (0); Platelet Count 182 thou/uL (130-400); Platelet Morphology Comment Appears Adequate; Polychromasia SLIGHT = 2-3 cells (100X) (0-2/hpf); RBC Distribution Width 14.1 % (11.5-14.5); Red Blood Cell (RBC) Count 2.97 mill/uL (4.70-6.10); White Blood Cell (WBC) Count 18.8 thou/uL (4.8-10.8)
[2018-09-09 07:33] LABS: Actual Bicarbonate (HCO3a) 19.2 mEq/L (22-28); Base Excess (BEa) -6.6 mEq/L (-2.0 to +3.0); Calcium, Ionized 1.09 mmol/L (1.12-1.30); Carboxyhemoglobin (COHb) 1.4 gm% (0.0-3.0); Hemoglobin (Hb) 8.2 g/dL (14.0-18.0); O2 Tension (PaO2) 68.1 mmHg (> 60.0); Potassium - ABG Lab 5.56 mmol/L (3.70-5.30)
--- NOTE | 2018-09-09 08:18 | RAD ---
PORTABLE CHEST: Date: 09/09/18 PROVIDED CLINICAL HISTORY: Respiratory insufficiency. FINDINGS: Comparison with 09/08/18. Given differences in rotation, significant interval change with respect to the prior examination is n ot apparent. IMPRESSION: As above. POS: [facility]
[2018-09-09 08:22] LABS: Puncture Site L.R.
[2018-09-09] MEDS: Pantoprazole 40 MG VIAL IVP SCH (08:40)
--- NOTE | 2018-09-09 11:06 | PDOC.PN ---
- Subjective Encounter Start Date: 09/09/18 Encounter Start Time: 09:00 Subjective: pt intubated - Objective Resuscitation Status - Order Detail: 09/07/18 11:53 Resuscitation Status Routine Resuscitation Status: DNAR: NO Resuscitation Discussed with: with daughter daniela murguia Vital Signs & Weight: Vital Signs (12 hours) Temp Pulse Resp BP Pulse Ox 09/09/18 10:59 90 121/65 09/09/18 10:58 90 36 H 100 09/09/18 10:00 30 H 09/09/18 08:00 31 H 09/09/18 07:31 100 09/09/18 07:00 98.7 F 09/09/18 06:52 89 96/60 09/09/18 06:50 90 29 H 100 09/09/18 06:00 29 H 09/09/18 04:00 30 H 09/09/18 03:12 87 103/56 L 09/09/18 03:07 87 32 H 97 09/09/18 02:00 30 H 09/09/18 00:12 86 101/54 L Weight Admit Weight 175 lb Weight 87 lb 1.6 oz Most Recent Monitor Data Heart Rate from ECG 88 NIBP 118/60 NIBP BP-Mean 79 Respiration from ECG 18 SpO2 100 I&O: 09/08/18 09/09/18 09/10/18 06:59 06:59 06:59 Intake Total 5051.6 3325 100 Output Total 987 1265 150 Balance 4064.6 2060 -50 Result Diagrams: 09/09/18 04:30 09/09/18 04:30 Phys Exam - Physical Examination Neck: no nodes, no JVD, supple, full ROM mild rhonchi all over, diminished beath sound all over Cardiovascular: RRR, no significant murmur, no rub, gallop, irregular Gastrointestinal: soft, non-tender, no distention, positive bowel sounds Dx/Plan (1) Acute respiratory failure with hypoxia Code(s): J96.01 - ACUTE RESPIRATORY FAILURE WITH HYPOXIA Status: Acute Comment: on bipap (2) PNA (pneumonia) Code(s): J18.9 - PNEUMONIA, UNSPECIFIED ORGANISM Status: Acute Qualifiers: Pneumonia type: due to unspecified organism Laterality: bilateral (3) Moderate protein malnutrition Code(s): E44.0 - MODERATE PROTEIN-CALORIE MALNUTRITION Status: Chronic (4) CRYSTAL (acute kidney injury) Code(s): N17.9 - ACUTE KIDNEY FAILURE, UNSPECIFIED Status: Acute (5) Anemia Code(s): D64.9 - ANEMIA, UNSPECIFIED Status: Acute Qualifiers: Anemia type: unspecified type Qualified Code(s): D64.9 - Anemia, unspecified - Plan pt on abx for aspiration pna per pulm -: palliative spoke with family who were thinking of possible hospice -: no family at bedside now, -: pt on levo * . Review of Systems - Review of Systems Other: unable to obtain - Medications/Allergies Allergies/Adverse Reactions: Allergies Allergy/AdvReac Type Severity Reaction Status Date / Time aspirin Allergy Verified 09/05/18 03:02 Penicillins Allergy Verified 09/05/18 03:02 Medications: Current Medications Acetaminophen (Tylenol) 650 mg PO Q4H PRN PRN Reason: Headache/Fever/Mild Pain (1-3) Albuterol/Ipratropium (Duoneb) 3 ml NEB [id number] [facility] Last Admin: 09/09/18 10:58 Dose: 3 ml Bisacodyl (Dulcolax) 10 mg PO DAILYPRN PRN PRN Reason: Constipation Calcium Carbonate (Tums) 1,000 mg PO Q4H PRN PRN Reason: Heartburn or Indigestion Guaifenesin/Dextromethorphan (Robitussin Dm) 15 ml PO Q4H PRN PRN Reason: Cough Sodium Chloride (Normal Saline 0.9%) 1,000 mls @ 75 mls/hr IV .[id number] [facility] Last Admin: 09/08/18 22:01 Dose: 1,000 mls Cefepime HCl 1 gm/ Sodium (Chloride) 100 mls @ 200 mls/hr IVPB 1630 [facility] Last Admin: 09/08/18 15:36 Dose: 100 mls Fentanyl Citrate 2,000 mcg/ (Sodium Chloride) 100 mls @ 0 mls/hr IV INF [facility]; Protocol Stop: 10/07/18 07:42 Fentanyl Citrate (Fentanyl Bolus) 250 mls @ 0 mls/hr IVPB PRN PRN PRN Reason: Breakthrough pain/agitation Stop: 10/07/18 07:42 Clindamycin Phosphate/Dextrose (900 mg/ Device) 50 mls @ 100 mls/hr IVPB Q8HR [facility] Last Admin: 09/09/18 06:17 Dose: 50 mls Norepinephrine Bitartrate (Levophed) 250 mls @ 0 mls/hr IVPB INF [facility]; Protocol Last Admin: 09/07/18 16:42 Dose: 250 mls Ipratropium [place] (Atrovent) 2.5 ml NEB TID PRN PRN Reason: SOB &/or Wheezing Latanoprost (Xalatan 0.005% Oph Soln) 1 drop EA EYE HS [facility] Last Admin: 09/08/18 22:00 Dose: 1 drop Lorazepam (Ativan) 2 mg SLOW IVP Q1H PRN PRN Reason: Breakthrough agitation Stop: 10/07/18 07:42 Methylprednisolone Sodium Succinate (Solu-Medrol) 20 mg IVP 0500,1100,1700, 2300 [facility] Last Admin: 09/09/18 10:37 Dose: 20 mg Morphine Sulfate (Morphine) 2 mg SLOW IVP Q1H PRN PRN Reason: BREAKTHROUGH PAIN/Agitation Stop: 10/07/18 07:42 Pantoprazole Sodium (Protonix) 40 mg IVP DAILY [facility] Last Admin: 09/09/18 08:40 Dose: 40 mg [Aricept] 23 Mg 0.5 each PO DAILY [facility] Last Admin: 09/09/18 08:40 Dose: 0.5 each Propofol (Diprivan) 1,000 mg IV INF PRN; Protocol PRN Reason: TO ACHIEVE GOAL RASS Stop: 10/07/18 07:42 Last Admin: 09/09/18 06:17 Dose: 1,000 mg Propofol (Diprivan Bolus) 20 mg IV Q5MIN PRN PRN Reason: BREAKTHROUGH AGITATION Stop: 10/07/18 07:42 Senna/Docusate Sodium (Senokot S) 2 tab PO BID PRN PRN Reason: Constipation Sodium Chloride (Flush - Normal Saline) 10 ml IVF Q12HR PRN PRN Reason: Saline Flush Last Admin: 09/09/18 08:39 Dose: 10 ml Sodium Chloride (Flush - Normal Saline) 10 ml IVF PRN PRN PRN Reason: Saline Flush Last Admin: 09/06/18 15:13 Dose: 10 ml
--- NOTE | 2018-09-09 11:12 | EKG ---
Test Reason : Blood Pressure : / mmHG Vent. Rate : 088 BPM Atrial Rate : 088 BPM P-R Int : 228 ms QRS Dur : 152 ms QT Int : 438 ms P-R-T Axes : 068 -37 115 degrees QTc Int : 529 ms Poor data quality, interpretation may be adversely affected Electronic ventricular pacemaker Confirmed by PAN SZYMANSKI ([id number]), supervising editor trailer NORBERTO REYES ([id number]) on 09/09/2018 11:12:14 AM Referred By: Confirmed By:PAN SZYMANSKI
[2018-09-09] MEDS: Sodium Chloride 0.9% 1,000 ML IV SCH (12:19)
[2018-09-09] MEDS: Cefepime 1 GM in Sodium Chloride 0.9% 100 ML IVPB SCH (15:54)
[2018-09-09] MEDS: Latanoprost 0.005% Ophth Soln 2.5 ml Bottle EA EYE SCH (21:21)
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
[2018-09-09] MEDS: Norepinephrine 8 MG/0.9% NS 250 ML IVPB SCH (23:26)
[2018-09-10 00:10] VITALS: BP 102/60
[2018-09-10 00:19] VITALS: TEMP 98.6
[2018-09-10] MEDS: Sodium Chloride 0.9% 1,000 ML IV SCH (01:40)
--- NOTE | 2018-09-10 03:34 | PDOC.EVN ---
Event Note - Event Note Event Note: Paged by RN pt was found with no pulse, no heart rythm, I have examined the pt , no corneal reflexes, no gag reflexes fixed pupil, no heart sounds, no spontaneous breathing after stopping the vent. Pronounced at 3:18 AM
--- NOTE | 2018-09-14 06:59 | DIS ---
DATE OF ADMISSION: 09/04/2018 DATE OF DISCHARGE: 09/10/2018 SUMMARY DATE OF : September 10. DISCHARGE DIAGNOSES: As of the following; 1. Acute respiratory failure with hypoxia. 2. Pneumonia aspiration. 3. Moderate protein malnutrition. 4. Acute kidney injury. 5. Anemia. HOSPITAL COURSE: The patient is an 87-year-old male who initially came into the hospital with bilateral pneumonia. The patient had worsening shortness of breath. Initially, he was put on non-rebreather and then was put on BiPAP. However, the patient's condition continued to worsen even with empiric antibiotics and steroids. At this time, he underwent endotracheal intubation. The patient's overall medical condition continued to deteriorate. He was found to have significant change of color to his right lower extremity. 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 At this time, he was put on a heparin drip. However, the patient's H and H started dropping, so this was discontinued. Dr. Alfonso, who is a CV surgeon, was also consulted regarding the ischemic right lower extremity and orthopnea, and given his overall poor medical outcome and the fact that he was still ventilated and was not doing well requiring very high PEEP and no surgical intervention was planned for this patient. The patient also continued to have low H and H. At this time, GI also was consulted; however, the patient was not stable enough to undergo an endoscopy. The patient's condition continued to deteriorate. On multiple conversations to the daughter in regard to the patient's grim prognosis and also his worsening condition was informed. I did update the daughter on multiple occasions that the patient's poor condition and his worsening oxygenation even with high elevation of PEEP. The patient was on bilevel; this was handled of course by the education and training coordinator. The patient, at this time, was made do not resuscitate by the patient's daughter. The patient was continued to deteriorate while he was intubated, and at this time given his status of do not resuscitate, the patient was made comfortable and . I was not present when the patient . The patient's family was notified and the patient at 0318 in the morning. Job ID: [id number]
== END 2018-09-10 05:00 | disposition expired | DRG 208 ==
LOC: ERS 18:50 → ERHOLD 23:09 → CCU 09-05 16:05
PROVIDERS: ADMIT Internal Medicine; ATTEND Internal Medicine
PROC: 30233N1 Transfusion of Nonautologous Red Blood Cells into Peripheral Vein, Percutaneous Approach (ICD-10-PCS; principal; 2018-09-07)
PROC: 5A1945Z Respiratory Ventilation, 24-96 Consecutive Hours (ICD-10-PCS; 2018-09-07)
PROC: 0B9D8ZX Drainage of Right Middle Lung Lobe, Via Natural or Artificial Opening Endoscopic, Diagnostic (ICD-10-PCS; 2018-09-07)
PROC: 0BH17EZ Insertion of Endotracheal Airway into Trachea, Via Natural or Artificial Opening (ICD-10-PCS; 2018-09-07)
PROC: 05HM33Z Insertion of Infusion Device into Right Internal Jugular Vein, Percutaneous Approach (ICD-10-PCS; 2018-09-07)
PROC: B543ZZA Ultrasonography of Right Jugular Veins, Guidance (ICD-10-PCS; 2018-09-07)
DX: J96.01 Acute respiratory failure with hypoxia (principal); J69.0 Pneumonitis due to inhalation of food and vomit; N17.9 Acute kidney failure, unspecified; J84.9 Interstitial pulmonary disease, unspecified; E87.2 Acidosis; E44.0 Moderate protein-calorie malnutrition; Z68.1 Body mass index [BMI] 19.9 or less, adult; M19.90 Unspecified osteoarthritis, unspecified site; G47.30 Sleep apnea, unspecified; I25.10 Atherosclerotic heart disease of native coronary artery without angina pectoris; E86.0 Dehydration; D64.9 Anemia, unspecified; B02.9 Zoster without complications; Z66 Do not resuscitate; I73.9 Peripheral vascular disease, unspecified; I48.0 Paroxysmal atrial fibrillation; E87.5 Hyperkalemia; Z88.0 Allergy status to penicillin; Z85.51 Personal history of malignant neoplasm of bladder; Z85.828 Personal history of other malignant neoplasm of skin; Z95.0 Presence of cardiac pacemaker; Z96.651 Presence of right artificial knee joint; Z90.49 Acquired absence of other specified parts of digestive tract
CPT/HCPCS: 36415; 36430; 71045; 71275; 80048; 80053; 80202; 82805; 83516; 83520; 83880; 84443; 85025; 85379; 85652; 85730; 86038; 86140; 86160; 86225; 86235; 86256; 86376; 86850; 86900; 86901; 87040; 87070; 90471; 90662; 93005; 93306; 93923; 94002; 94003; 94640; 94660; 94760; 96361; 96374; C9113; G0008; J0692; J1644; J1940; J2060; J2704; J2930; J3370; J3490; J7050; J7620; P9016